=== PATIENT | female | born 1975 | race Caucasian/White ===

== ENCOUNTER → 2018-02-07 10:26 | Outpatient (CLI) | payer BC, SELFPAY ==
--- NOTE | 2018-02-07 10:34 | CT_ITS ---
CT abdomen pelvis w con CLINICAL INDICATION: Epigastric pain, lower abdominal pain ITS.REASON: RUQ MASS ORDERING PHYSICIAN: Anish Cabrera MD PATIENT AGE: 42 years COMPARISON: None TECHNIQUE: Axial images obtained with sagittal and coronal reformats. All CT scans at the facility use one or more dose reduction, viz: automated exposure control, ma/kV adjustment per patient size (including targeted exams where dose is matched to indication, i.e. head), or iterative reconstruction technique. PROCEDURE: Oral Contrast: Redicat IV Contrast: 75 mL's of Isovue-370. FINDINGS: Lower thorax: No acute finding . Breast prosthesis are noted Abdomen pelvis: There is a 5 mm isodensity in the left hepatic lobe and a 7 mm isodensity in the right hepatic lobe. Possibly due to small cysts. Spleen, adrenal glands, gallbladder, and pancreas has an unremarkable appearance. No renal or ureteral calculi. No hydronephrosis. There are few small mesenteric lymph nodes. Unremarkable appendix. No intestinal obstruction, free air, or diverticulitis. Prior hysterectomy. No pelvic mass or abnormal fluid collection or focal inflammatory change of the pelvis. No acute bony anomalies. Tiny umbilical hernia containing fat IMPRESSION: 1. No acute abdominal pelvic findings. 2. Nonspecific isodensity's of the liver which may be due to small cyst and may be confirmed with ultrasound if clinically warranted.
== END ==
PROVIDERS: Family Provider Family Medicine; PCP Family Medicine; Visit Provider Family Medicine
DX: R19.01 Right upper quadrant abdominal swelling, mass and lump (principal)
CPT/HCPCS: 74177; Q9967

== ENCOUNTER → 2018-03-17 09:32 | Outpatient (POV) | payer BC, SELFPAY | PROVIDERS: Visit Provider Nurse Practitioner Acute Care | DX: Z00.00 Encounter for general adult medical examination without abnormal findings (principal) ==

== ENCOUNTER 2018-09-04 13:00 | Outpatient (RCR) | payer BC, SELFPAY | END 2018-09-04 13:05 | disposition home or self-care (01) | LOC: PT 13:00 | PROVIDERS: Visit Provider Nurse Practitioner Family | DX: M50.30 Other cervical disc degeneration, unspecified cervical region (principal) | CPT/HCPCS: 97010; 97012; 97014; 97035; 97110; 97140; 97163; G0283 ==

== ENCOUNTER 2019-01-21 11:08 | Inpatient (IN) ==
--- NOTE | 2019-01-21 12:51 | History & Physical Report ---
*Admission Date: 01/21/19 <Roseanne Figueroa 01/21/19 12:58> *Chief complaint: flank pain, fever, dysuria <Roseanne Figueroa 01/21/19 12:58> *History of present illness: Ms. Day is a 43-year-old female who presented to the office of [facility] today with fever, chills, right flank and abdominal pain, and dysuria. She states last week she had some right flank pain for approximately 3 days and felt she may have had a kidney stone. The pain resolved but then returned again this week. The pain has progressively worsened and she developed a fever of over 101 along with body aches and chills. A CBC in the office showed a white count of 15,000. Urinalysis showed trace blood but was otherwise negative. A urine culture was sent for evaluation. She had a CT scan showing perinephric stranding on the right and radiology felt she may have possibly passed a stone recently. She was felt to have a pyelonephritis and was admitted for IV fluids, pain management, and IV antibiotics. <Roseanne Figueroa 01/21/19 12:58> [facility] History I have reviewed the patient's past medical history: Yes <Roseanne Figueroa 01/21/19 12:58> Medical History: Reports:: Gastroesophageal Reflux Disease(GERD), Migraine Denies:: Cancer, Diabetes Mellitus Type 1, Diabetes Mellitus Type 2, MRSA <Roseanne Figueroa 01/21/19 12:58> *Have you ever received a pneumonia vaccine?: No <Roseanne Figueroa 01/21/19 12:58> *Have you received a flu vaccine this season?: No <Roseanne Figueroa 01/21/19 12:58> Other Medical History: Reports: Hypothyroidism, Other (Carpal tunnel) <Roseanne Figueroa 01/21/19 12:58> Other Surgeries: Yes: , Hysterectomy-Total, Tubal Ligation, Other (Right shoulder, breast augmentation) <Roseanne Figueroa 01/21/19 12:58> Amputation: No <Roseanne Figueroa 01/21/19 12:58> - *Social History Smoking Status: Current every day smoker <Roseanne Figueroa 01/21/19 12:58> Tobacco Type: cigarettes <Roseanne Figueroa 01/21/19 12:58> Alcohol Intake: never <Roseanne Figueroa 01/21/19 12:58> *Occupational Status:: employed <Roseanne Figueroa 01/21/19 12:58> *Travel in the last 8 weeks: None <Roesanne Figueroa 01/21/19 12:58> Family Hx:: Cancer, Coronary Artery Disease <Roseanne Figueroa 01/21/19 12:58> Review of Systems - Constitutional Reports body ache(s), Reports chills, Reports fever(s), Reports malaise, Reports weakness <Roseanne Figueroa 01/21/19 12:58> - Eyes Denies blurry vision, Denies double vision <Roseanne Figueroa 01/21/19 12:58> - ENT Denies nasal congestion, Denies sore throat <Roseanne Figueroa 01/21/19 12:58> - *Cardiovascular Denies chest pain, Denies shortness of breath <Roseanne Figueroa 01/21/19 12:58> - *Respiratory Denies cough, Denies shortness of breath <Roseanne Figueroa 01/21/19 12:58> - *Gastrointestinal Reports abdominal pain (diffuse but worse on the right), Reports loose stools, Reports nausea, Denies vomiting <Roseanne Figueroa 01/21/19 12:58> - *Genitourinary Reports difficulty urinating, Reports painful urination <Roseanne Figueroa 01/21/19 12:58> - *Musculoskeletal Reports body aches, Denies joint pain <Roseanne Figueroa 01/21/19 12:58> - *Neurologic Reports headache(s), Reports weakness, Denies dizziness <Roseanne Figueroa 01/21/19 12:58> Meds Home Medications Medication Instructions Recorded Confirmed Type Levothyroxine Sodium 100 mg PO DAILY 12/29/17 01/21/19 History [Levothyroxine 100mcg (0.1MG) Tab] Pantoprazole Sodium [Protonix 40mg 40 mg PO DAILY 01/21/19 01/21/19 History tablet] <Olivier Lee - 01/21/19 17:23> Allergies Allergy/AdvReac Type Severity Reaction Status Date / Time No Known Allergies Allergy Verified 12/29/17 15:59 <Olivier Lee - 01/21/19 17:23> Exam Vital signs and Labs for Last 24 Hours: Temp Pulse Resp BP Pulse Ox 99.7 F H 105 H 18 131/75 96 01/21/19 16:00 01/21/19 16:00 01/21/19 16:00 01/21/19 16:00 01/21/19 16:00 Laboratory Results - last 24 hr 01/21/19 14:10: WBC 14.9 H, RBC 4.37, Hgb 13.3, Hct 41.6, MCV 95.2, MCH 30.5, MCHC 32.1, RDW 14.3, Plt Count 387, MPV 7.7, Neut % (Auto) 86.8 H, Lymph % (Auto) 5.9 L, [place] % (Auto) 6.9, Eos % (Auto) 0.3, Baso % (Auto) 0.3, Neut # (Auto) 12.9 H, Lymph # (Auto) 0.9, [place] # (Auto) 1.0, Eos # (Auto) 0.0, Baso # (Auto) 0.0, Total Counted 100, Neutrophils % (Manual) 90 H, Lymphocytes % (Manual) 7 L, Monocytes % (Manual) 3, Platelet Estimate Normal, RBC Morphology Normal 01/21/19 14:10: Sodium 137, Potassium 3.4 L, Chloride 101, Carbon Dioxide 22, Anion Gap 17.4 H, BUN 5 L, Creatinine 0.70, Estimated Creat Clear 85, Estimated GFR 91, Est GFR ( Amer) 110, Glucose 92, Calcium 8.4 L, Total Bilirubin 0.4, AST 11 L, ALT 9 L, Alkaline Phosphatase 86, Total Protein 7.5, Albumin 3.7, Globulin 3.8 H, Albumin/Globulin Ratio 1.0 L <Olivier Lee - 01/21/19 17:23> I & O for Last 24 hours: Intake & Output 01/18/19 01/19/19 01/20/19 01/21/19 23:59 23:59 23:59 23:59 Weight 116 lb 4 oz <Olivier Lee - 01/21/19 17:23> - Constitutional Comments: Does not appear to feel well <Roseanne Figueroa 01/21/19 12:58> - *Routine HEENT Exam Head: Present: normocephalic <Roseanne Figueroa 01/21/19 12:58> Eye: Present: EOMI, PERRL <Roseanne Figueroa 01/21/19 12:58> ENT: Present: mucous membranes moist <Roseanne Figueroa 01/21/19 12:58> - *Routine Neck Exam Present: supple. Absent: lymphadenopathy <Roseanne Figueroa 01/21/19 12:58> - *Routine Respiratory Exam Present: CTA bilaterally <Roseanne Figueroa 01/21/19 12:58> - *Routine Cardiovascular Exam Present: tachycardia <Roseanne Figueroa 01/21/19 12:58> - *Routine Abdominal Exam Present: soft, normoactive bowel sounds, tenderness (diffuse but worse in the RLQ and RMQ) <Roseanne Figueroa 01/21/19 12:58> - *Routine Extremities Exam Absent: cyanosis, clubbing, edema <Roseanne Figueroa 01/21/19 12:58> - Routine Back/Spine/Pelvis Exam Back/Spine: Present: CVA tenderness (bilaterally but worse on the right) <Roseanne Figueroa 01/21/19 12:58> - *Routine Skin Exam Present: warm. Absent: rash <Roseanne Figueroa 01/21/19 12:58> - *Routine Neurological Exam Present: alert, oriented X3 <Roseanne Figueroa 01/21/19 12:58> H&P: Result - Impressions Abd/pelvic CT Right perinephric stranding without renal stones or hydronephrosis or hydroureter. Differential would include acute right-sided nephritis or patient may have recently passed a stone. Stable liver lesions suggesting benign etiology. Nonspecific small mesenteric lymph nodes perhaps from mesenteric adenitis. <Roseanne Figueroa 01/21/19 12:58> Assessment and Plan (1) Pyelonephritis Current visit: Yes Status: Acute Category: Medical Code(s): N12 - Tubulo- interstitial nephritis, not specified as acute or chronic (2) Hypothyroid Current visit: Yes Status: Chronic Category: Medical Code(s): E03.9 - Hypothyroidism, unspecified (3) GERD (gastroesophageal reflux disease) Current visit: Yes Status: Chronic Category: Medical Code(s): K21.9 - Gastro-esophageal reflux disease without esophagitis <Olivier Lee - 01/21/19 17:23> (1) Pyelonephritis Current visit: Yes Status: Acute Category: Medical Code(s): N12 - Tubulo- interstitial nephritis, not specified as acute or chronic (2) Hypothyroid Current visit: Yes Status: Chronic Category: Medical Code(s): E03.9 - Hypothyroidism, unspecified (3) GERD (gastroesophageal reflux disease) Current visit: Yes Status: Chronic Category: Medical Code(s): K21.9 - Gastro-esophageal reflux disease without esophagitis <Roseanne Figueroa - 01/21/19 12:47> - Assessment and plan all Dx Assessment and Plan for all problems:: Saw patient, agree with above note. <Olivier Lee - 01/21/19 17:23> We will give a bolus of fluids and then start on normal saline at 125 mL an hour. Will start on Levaquin as well as Rocephin and morphine for pain. We will add Tylenol for fever and start on Zofran for nausea. Will await urine and blood culture results. <Roseanne Figueroa - 01/21/19 12:58>
[2019-01-21 15:10] LABS: Basophils % 0.3 % (0.1-2.0); Eosinophils % 0.3 % (0.1-12.0); Hematocrit 41.6 % (37.0-47.0); Hemoglobin 13.3 g/dL (12.2-16.2); Lymphocytes # 0.9 K/mm3 (0.7-4.5); Lymphocytes % 5.9 % (10-50); Mean Corpuscular HGB Conc 32.1 g/dL (31.8-35.4); Mean Corpuscular Volume 95.2 fl (81-99); Mean Platelet Volume 7.7 fl (7.4-10.4); Monocytes % 6.9 % (1.7-9.3); Neutrophils # 12.9 K/mm3 (1.8-7.8); Neutrophils % 86.8 % (37.0-80.0); Platelet Count 387 K/mm3 (142-424); Red Blood Count 4.37 M/mm3 (4.20-5.40); Red Cell Distribution Width 14.3 % (11.5-17.5); White Blood Count 14.9 K/mm3 (4.8-10.8)
[2019-01-21 16:13] LABS: Albumin Level 3.7 gm/dL (3.4-5.0); Anion Gap 17.4 mEq/L (5-15); Bilirubin,Total 0.4 mg/dL (0.2-1.0); Calcium 8.4 mg/dL (8.5-10.1); Globulin 3.8 gm/dl (1.3-3.2); Total Protein,Serum 7.5 gm/dL (6.4-8.2)
--- NOTE | 2019-01-21 16:17 | Pharmacy Consult Notes ---
[facility] Pharmacy VTE Monitoring - Patient Demographics Admission date: 01/21/19 Report Date: 01/21/19 Time: 16:16 Allergies/Adverse Reactions: Patient Allergies No Known Allergies Allergy (Verified 12/29/17 15:59) Height: 1.57 m Weight: 52.73 kg Patient Problems: Current Active Problems Pyelonephritis (Acute) Hypothyroid (Chronic) GERD (gastroesophageal reflux disease) (Chronic) - VTE Risk Labs: VTE Related Lab Results Hgb 13.3 g/dL (12.2-16.2) 01/21/19 14:10 Hct 41.6 % (37.0-47.0) 01/21/19 14:10 Plt Count 387 K/mm3 (142-424) 01/21/19 14:10 BUN 5 mg/dL (7-18) L 01/21/19 14:10 Creatinine 0.70 mg/dL (0.55-1.02) 01/21/19 14:10 Estimated Creat Clear 85 mL/min (50-200) 01/21/19 14:10 Was VTE Risk Assessment Performed: Yes VTE Score: 1 VTE Risk Level: Very Low Risk - Prophylaxis VTE Prophylaxis Ordered?: Yes Types of VTE Prophylaxis: TEDS Knee High Location of Applied Device: Bilateral Lower Extremeties - VTE Diagnosis Confirmed Treatment or plan recommended: Continue Current Treatment
[2019-01-21 16:18] LABS: Lymphocytes % 7 % (10-50); Monocytes % 3 % (2-9); Neutrophils % 90 % (42-76); RBC Morphology Normal; Total Cells Counted 100
[2019-01-21 23:15] LABS: Microscopic, Urine URINE MICROSCOPIC (MICROSCOPIC)
[2019-01-21 23:21] LABS: Appearance,Urine CLEAR (Clear); Bilirubin,Urine Negative (Negative); Blood, Urine 1+ (Negative); Color,Urine YELLOW (Yellow); Glucose,Urine (UA) Negative (Negative); Ketones,Urine Negative (Negative); Leukocyte Esterase,Urine 1+ (Negative); Protein,Urine Negative (Negative); Specific Gravity, Urine <= 1.005 (1.005-1.030); Urobilinogen,Urine 0.2 EU/dl (0.2)
[2019-01-21 23:38] LABS: Bacteria,Urine Trace /lpf
[2019-01-22 07:09] LABS: Eosinophils % 0.2 % (0.1-12.0); Lymphocytes # 1.9 K/mm3 (0.7-4.5)
[2019-01-22 07:23] LABS: Albumin Level 2.9 gm/dL (3.4-5.0); Albumin/Globulin Ratio 0.8 (1.1-1.8); Anion Gap 15.4 mEq/L (5-15); Bilirubin,Total 0.3 mg/dL (0.2-1.0); Calcium 8.4 mg/dL (8.5-10.1); Globulin 3.5 gm/dl (1.3-3.2); Total Protein,Serum 6.4 gm/dL (6.4-8.2)
[2019-01-22 07:24] LABS: Basophils # 0.1 K/mm3 (0-0.2); Basophils % 0.4 % (0.1-2.0); Lymphocytes % 13.1 % (10-50); Mean Corpuscular HGB Conc 30.4 g/dL (31.8-35.4); Mean Corpuscular Volume 96.1 fl (81-99); Monocytes # 0.9 K/mm3 (0.1-1.0); Monocytes % 6.2 % (1.7-9.3); Neutrophils # 11.8 K/mm3 (1.8-7.8); Neutrophils % 80.1 % (37.0-80.0); Platelet Count 314 K/mm3 (142-424); Red Blood Count 3.74 M/mm3 (4.20-5.40); Red Cell Distribution Width 14.2 % (11.5-17.5); White Blood Count 14.8 K/mm3 (4.8-10.8)
[2019-01-22 07:44] LABS: Hemoglobin 10.9 g/dL (12.2-16.2)
--- NOTE | 2019-01-22 08:20 | Progress Note ---
<Roseanne Figueroa - Last Filed: 01/22/19 08:18> Internal Medicine - PN: Subj *Date: 01/22/19 *Time: 08:19 Interval history: Patient is feeling much better this morning. She still has some right flank and right lower quadrant pain. She slept off and on throughout the night and was able to tolerate a diet. Exam Vital signs and Labs for Last 24 Hours: Temp Pulse Resp BP Pulse Ox 98.7 F 83 18 115/64 97 01/22/19 04:00 01/22/19 04:00 01/22/19 04:00 01/22/19 04:00 01/22/19 04:00 Laboratory Results - last 24 hr 01/21/19 14:10: WBC 14.9 H, RBC 4.37, Hgb 13.3, Hct 41.6, MCV 95.2, MCH 30.5, MCHC 32.1, RDW 14.3, Plt Count 387, MPV 7.7, Neut % (Auto) 86.8 H, Lymph % (Auto) 5.9 L, [place] % (Auto) 6.9, Eos % (Auto) 0.3, Baso % (Auto) 0.3, Neut # (Auto) 12.9 H, Lymph # (Auto) 0.9, [place] # (Auto) 1.0, Eos # (Auto) 0.0, Baso # (Auto) 0.0, Total Counted 100, Neutrophils % (Manual) 90 H, Lymphocytes % (Manual) 7 L, Monocytes % (Manual) 3, Platelet Estimate Normal, RBC Morphology Normal 01/21/19 14:10: Sodium 137, Potassium 3.4 L, Chloride 101, Carbon Dioxide 22, Anion Gap 17.4 H, BUN 5 L, Creatinine 0.70, Estimated Creat Clear 85, Estimated GFR 91, Est GFR ( Amer) 110, Glucose 92, Calcium 8.4 L, Total Bilirubin 0.4, AST 11 L, ALT 9 L, Alkaline Phosphatase 86, Total Protein 7.5, Albumin 3.7, Globulin 3.8 H, Albumin/Globulin Ratio 1.0 L 01/21/19 23:10: Urine Color Yellow, Urine Appearance Clear, Urine pH 7.0, Ur Specific [place] <= 1.005, Urine Protein Negative, Urine Glucose (UA) Negative, Urine Ketones Negative, Urine Blood 1+, Urine Nitrate Negative, Urine Bilirubin Negative, Urine Urobilinogen 0.2, Ur Leukocyte Esterase 1+ A, Urine WBC 5-10, Ur Squamous Epith Cells 3-5, Urine Bacteria Trace 01/22/19 06:50: WBC 14.8 H, RBC 3.74 L, Hgb 10.9 L D, Hct 36.0 L, MCV 96.1, MCH 29.2, MCHC 30.4 L, RDW 14.2, Plt Count 314, MPV 7.0 L, Neut % (Auto) 80.1 H, Lymph % (Auto) 13.1, [place] % (Auto) 6.2, Eos % (Auto) 0.2, Baso % (Auto) 0.4, Neut # (Auto) 11.8 H, Lymph # (Auto) 1.9, [place] # (Auto) 0.9, Eos # (Auto) 0.0, Baso # (Auto) 0.1 01/22/19 06:50: Sodium 140, Potassium 3.4 L, Chloride 106, Carbon Dioxide 22, Anion Gap 15.4 H, BUN 5 L, Creatinine 0.71, Estimated Creat Clear 84, Estimated GFR 89, Est GFR ( Amer) 108, Glucose 122 H D, Calcium 8.4 L, Total Bilirubin 0.3, AST 8 L D, ALT 8 L, Alkaline Phosphatase 71, Total Protein 6.4, Albumin 2.9 L D, Globulin 3.5 H, Albumin/Globulin Ratio 0.8 L I & O for Last 24 hours: Intake & Output 01/19/19 01/20/19 01/21/19 01/22/19 11:59 11:59 11:59 11:59 Intake Total 2004 Output Total 250 / 250 Balance 1755 / 1755 Weight 116 lb 4 oz - Constitutional no acute distress - *Routine Respiratory Exam Present: CTA bilaterally - *Routine Cardiovascular Exam Present: RRR - *Routine Abdominal Exam Present: soft, normoactive bowel sounds, tenderness (RMQ and RLQ) - *Routine Extremities Exam Absent: cyanosis, clubbing, edema - *Routine Skin Exam Present: warm. Absent: rash Assessment and Plan (1) Pyelonephritis Current visit: Yes Status: Acute Category: Medical Code(s): N12 - Tubulo- interstitial nephritis, not specified as acute or chronic (2) Hypothyroid Current visit: Yes Status: Chronic Category: Medical Code(s): E03.9 - Hypothyroidism, unspecified (3) GERD (gastroesophageal reflux disease) Current visit: Yes Status: Chronic Category: Medical Code(s): K21.9 - Gastro-esophageal reflux disease without esophagitis (4) Hypokalemia Current visit: Yes Status: Acute Category: Medical Code(s): E87.6 - Hypokalemia - Assessment and plan all Dx Assessment and Plan for all problems:: We will continue IV antibiotics and await urine culture results. Will start on potassium for hypokalemia. <Olivier Lee - Last Filed: 01/22/19 08:22> Internal Medicine - PN: Subj *Date: 01/22/19 *Time: 08:22 Exam Vital signs and Labs for Last 24 Hours: Temp Pulse Resp BP Pulse Ox 98.7 F 83 18 115/64 97 01/22/19 04:00 01/22/19 04:00 01/22/19 04:00 01/22/19 04:00 01/22/19 04:00 Laboratory Results - last 24 hr 01/21/19 14:10: WBC 14.9 H, RBC 4.37, Hgb 13.3, Hct 41.6, MCV 95.2, MCH 30.5, MCHC 32.1, RDW 14.3, Plt Count 387, MPV 7.7, Neut % (Auto) 86.8 H, Lymph % (Auto) 5.9 L, [place] % (Auto) 6.9, Eos % (Auto) 0.3, Baso % (Auto) 0.3, Neut # (Auto) 12.9 H, Lymph # (Auto) 0.9, [place] # (Auto) 1.0, Eos # (Auto) 0.0, Baso # (Auto) 0.0, Total Counted 100, Neutrophils % (Manual) 90 H, Lymphocytes % (Manual) 7 L, Monocytes % (Manual) 3, Platelet Estimate Normal, RBC Morphology Normal 01/21/19 14:10: Sodium 137, Potassium 3.4 L, Chloride 101, Carbon Dioxide 22, Anion Gap 17.4 H, BUN 5 L, Creatinine 0.70, Estimated Creat Clear 85, Estimated GFR 91, Est GFR ( Amer) 110, Glucose 92, Calcium 8.4 L, Total Bilirubin 0.4, AST 11 L, ALT 9 L, Alkaline Phosphatase 86, Total Protein 7.5, Albumin 3.7, Globulin 3.8 H, Albumin/Globulin Ratio 1.0 L 01/21/19 23:10: Urine Color Yellow, Urine Appearance Clear, Urine pH 7.0, Ur Specific [place] <= 1.005, Urine Protein Negative, Urine Glucose (UA) Negative, Urine Ketones Negative, Urine Blood 1+, Urine Nitrate Negative, Urine Bilirubin Negative, Urine Urobilinogen 0.2, Ur Leukocyte Esterase 1+ A, Urine WBC 5-10, Ur Squamous Epith Cells 3-5, Urine Bacteria Trace 01/22/19 06:50: WBC 14.8 H, RBC 3.74 L, Hgb 10.9 L D, Hct 36.0 L, MCV 96.1, MCH 29.2, MCHC 30.4 L, RDW 14.2, Plt Count 314, MPV 7.0 L, Neut % (Auto) 80.1 H, Lymph % (Auto) 13.1, [place] % (Auto) 6.2, Eos % (Auto) 0.2, Baso % (Auto) 0.4, Neut # (Auto) 11.8 H, Lymph # (Auto) 1.9, [place] # (Auto) 0.9, Eos # (Auto) 0.0, Baso # (Auto) 0.1 01/22/19 06:50: Sodium 140, Potassium 3.4 L, Chloride 106, Carbon Dioxide 22, Anion Gap 15.4 H, BUN 5 L, Creatinine 0.71, Estimated Creat Clear 84, Estimated GFR 89, Est GFR ( Amer) 108, Glucose 122 H D, Calcium 8.4 L, Total Bilirubin 0.3, AST 8 L D, ALT 8 L, Alkaline Phosphatase 71, Total Protein 6.4, Albumin 2.9 L D, Globulin 3.5 H, Albumin/Globulin Ratio 0.8 L I & O for Last 24 hours: Intake & Output 01/19/19 01/20/19 01/21/19 01/22/19 23:59 23:59 23:59 23:59 Intake Total 480 / 480 1525 / 1525 Output Total 250 / 250 Balance 230 / 230 1525 / 1525 Weight 116 lb 4 oz Assessment and Plan (1) Pyelonephritis Current visit: Yes Status: Acute Category: Medical Code(s): N12 - Tubulo- interstitial nephritis, not specified as acute or chronic (2) Hypothyroid Current visit: Yes Status: Chronic Category: Medical Code(s): E03.9 - Hypothyroidism, unspecified (3) GERD (gastroesophageal reflux disease) Current visit: Yes Status: Chronic Category: Medical Code(s): K21.9 - Gastro-esophageal reflux disease without esophagitis (4) Hypokalemia Current visit: Yes Status: Acute Category: Medical Code(s): E87.6 - Hypokalemia - Assessment and plan all Dx Assessment and Plan for all problems:: Saw patient, agree with above note.
[2019-01-23 06:56] LABS: Basophils % 0.4 % (0.1-2.0); Eosinophils # 0.2 K/mm3 (0.0-0.4); Eosinophils % 1.4 % (0.1-12.0); Hematocrit 35.8 % (37.0-47.0); Hemoglobin 11.5 g/dL (12.2-16.2); Lymphocytes # 2.2 K/mm3 (0.7-4.5); Lymphocytes % 20.4 % (10-50); Mean Corpuscular HGB Conc 32.1 g/dL (31.8-35.4); Mean Corpuscular Volume 95.1 fl (81-99); Mean Platelet Volume 7.7 fl (7.4-10.4); Monocytes # 0.7 K/mm3 (0.1-1.0); Monocytes % 6.6 % (1.7-9.3); Neutrophils # 7.7 K/mm3 (1.8-7.8); Neutrophils % 71.1 % (37.0-80.0); Platelet Count 300 K/mm3 (142-424); Red Blood Count 3.77 M/mm3 (4.20-5.40); Red Cell Distribution Width 13.6 % (11.5-17.5); White Blood Count 10.9 K/mm3 (4.8-10.8)
[2019-01-23 07:05] LABS: Anion Gap 13.7 mEq/L (5-15); Calcium 8.6 mg/dL (8.5-10.1)
--- NOTE | 2019-01-23 08:34 | Progress Note ---
<Roseanne Figueroa - Last Filed: 01/23/19 08:33> Internal Medicine - PN: Subj *Date: 01/23/19 *Time: 08:33 Interval history: Patient states she is feeling better today. She still has some right flank pain. She is tolerating a diet and slept a little bit better last night. Exam Vital signs and Labs for Last 24 Hours: Temp Pulse Resp BP Pulse Ox 98.6 F 84 16 111/69 98 01/23/19 04:00 01/23/19 04:00 01/23/19 04:00 01/23/19 04:00 01/23/19 04:00 Laboratory Results - last 24 hr 01/23/19 06:16: WBC 10.9 H D, RBC 3.77 L, Hgb 11.5 L, Hct 35.8 L, MCV 95.1, MCH 30.6, MCHC 32.1, RDW 13.6, Plt Count 300, MPV 7.7, Neut % (Auto) 71.1, Lymph % (Auto) 20.4, [place] % (Auto) 6.6, Eos % (Auto) 1.4, Baso % (Auto) 0.4, Neut # (Auto) 7.7, Lymph # (Auto) 2.2, [place] # (Auto) 0.7, Eos # (Auto) 0.2, Baso # (Auto) 0.0 01/23/19 06:16: Sodium 138, Potassium 3.7, Chloride 105, Carbon Dioxide 23, An ion Gap 13.7, BUN 4 L, Creatinine 0.64, Estimated Creat Clear 93, Estimated GFR 101, Est GFR ( Amer) 122, Glucose 109 H, Calcium 8.6 I & O for Last 24 hours: Intake & Output 01/20/19 01/21/19 01/22/19 01/23/19 11:59 11:59 11:59 11:59 Intake Total 2515 / 2515 3155 / 3155 Output Total 250 / 250 Balance 2265 / 2265 3155 / 3155 Weight 116 lb 4 oz 116 lb 3.996 oz Microbiology Reports for the Last 24 Hours: Microbiology 01/21/19 23:10 Urine,Clean Catch Urine Culture - Preliminary NO GROWTH AFTER 24 HOURS - Constitutional no acute distress - *Routine Respiratory Exam Present: CTA bilaterally - *Routine Cardiovascular Exam Present: RRR - *Routine Abdominal Exam Present: soft, normoactive bowel sounds, tenderness (RMQ and RLQ) - *Routine Extremities Exam Absent: cyanosis, clubbing, edema - *Routine Skin Exam Present: warm. Absent: rash - *Routine Neurological Exam Present: alert, oriented X3 Assessment and Plan (1) Pyelonephritis Current visit: Yes Status: Acute Category: Medical Code(s): N12 - Tubulo- interstitial nephritis, not specified as acute or chronic (2) Hypothyroid Current visit: Yes Status: Chronic Category: Medical Code(s): E03.9 - Hypothyroidism, unspecified (3) GERD (gastroesophageal reflux disease) Current visit: Yes Status: Chronic Category: Medical Code(s): K21.9 - Gastro-esophageal reflux disease without esophagitis (4) Hypokalemia Current visit: Yes Status: Acute Category: Medical Code(s): E87.6 - Hypokalemia - Assessment and plan all Dx Assessment and Plan for all problems:: Urine culture so far show no growth. Patient can possibly be discharged today on oral antibiotics. <Olivier Lee - Last Filed: 01/23/19 08:53> Internal Medicine - PN: Subj *Date: 01/23/19 *Time: 08:53 Exam Vital signs and Labs for Last 24 Hours: Temp Pulse Resp BP Pulse Ox 98.6 F 84 16 111/69 98 01/23/19 04:00 01/23/19 04:00 01/23/19 04:00 01/23/19 04:00 01/23/19 04:00 Laboratory Results - last 24 hr 01/23/19 06:16: WBC 10.9 H D, RBC 3.77 L, Hgb 11.5 L, Hct 35.8 L, MCV 95.1, MCH 30.6, MCHC 32.1, RDW 13.6, Plt Count 300, MPV 7.7, Neut % (Auto) 71.1, Lymph % (Auto) 20.4, [place] % (Auto) 6.6, Eos % (Auto) 1.4, Baso % (Auto) 0.4, Neut # (Auto) 7.7, Lymph # (Auto) 2.2, [place] # (Auto) 0.7, Eos # (Auto) 0.2, Baso # (Auto) 0.0 01/23/19 06:16: Sodium 138, Potassium 3.7, Chloride 105, Carbon Dioxide 23, Anion Gap 13.7, BUN 4 L, Creatinine 0.64, Estimated Creat Clear 93, Estimated GFR 101, Est GFR ( Amer) 122, Glucose 109 H, Calcium 8.6 I & O for Last 24 hours: Intake & Output 01/20/19 01/21/19 01/22/19 01/23/19 23:59 23:59 23:59 23:59 Intake Total 630 / 630 2245 / 2245 2795 / 2795 Output Total 250 / 250 Balance 380 / 380 2245 / 2245 2795 / 2795 Weight 116 lb 4 oz 116 lb 3.996 oz Microbiology Reports for the Last 24 Hours: Microbiology 01/21/19 23:10 Urine,Clean Catch Urine Culture - Preliminary NO GROWTH AFTER 24 HOURS Assessment and Plan (1) Pyelonephritis Current visit: Yes Status: Acute Category: Medical Code(s): N12 - Tubulo- interstitial nephritis, not specified as acute or chronic (2) Hypothyroid Current visit: Yes Status: Chronic Category: Medical Code(s): E03.9 - Hypothyroidism, unspecified (3) GERD (gastroesophageal reflux disease) Current visit: Yes Status: Chronic Category: Medical Code(s): K21.9 - Gastro-esophageal reflux disease without esophagitis (4) Hypokalemia Current visit: Yes Status: Acute Category: Medical Code(s): E87.6 - Hypokalemia - Assessment and plan all Dx Assessment and Plan for all problems:: Saw patient, agree with above note. OK to discharge today on Levaquin with office f/u in 3 days.
--- NOTE | 2019-01-23 12:39 | Discharge Summary ---
General - General Admission date:: 01/21/19 Discharge date: 01/23/19 HPI HPI: Ms. Day is a 43-year-old female who presented to the office of [facility] today with fever, chills, right flank and abdominal pain, and dysuria. She states last week she had some right flank pain for approximately 3 days and felt she may have had a kidney stone. The pain resolved but then returned again this week. The pain has progressively worsened and she developed a fever of over 101 along with body aches and chills. A CBC in the office showed a white count of 15,000. Urinalysis showed trace blood but was otherwise negative. A urine culture was sent for evaluation. She had a CT scan showing perinephric stranding on the right and radiology felt she may have possibly passed a stone recently. She was felt to have a pyelonephritis and was admitted for IV fluids, pain management, and IV antibiotics. Hospital Course Hospital Course: The patient was started on IV fluids, pain management, and Levaquin as well as Rocephin. Her pain did improve and she was able to tolerate a diet. Her potassium was low and was replaced. Her urine culture showed no growth after 24 hours and her blood cultures are still pending. She was stable to be discharged home on oral antibiotics and will follow-up in the office of [facility]. Objective Vital signs: Temp Pulse Resp BP Pulse Ox 98.8 F 95 H 16 128/75 100 01/23/19 08:00 01/23/19 08:00 01/23/19 08:00 01/23/19 08:00 01/23/19 08:00 Narrative: - Constitutional Comments: Does not appear to feel well - *Routine HEENT Exam Head: Present: normocephalic Eye: Present: EOMI, PERRL ENT: Present: mucous membranes moist - *Routine Neck Exam Present: supple. Absent: lymphadenopathy - *Routine Respiratory Exam Present: CTA bilaterally - *Routine Cardiovascular Exam Present: tachycardia - *Routine Abdominal Exam Present: soft, normoactive bowel sounds, tenderness (diffuse but worse in the RLQ and RMQ) - *Routine Extremities Exam Absent: cyanosis, clubbing, edema - Routine Back/Spine/Pelvis Exam Back/Spine: Present: CVA tenderness (bilaterally but worse on the right) - *Routine Skin Exam Present: warm. Absent: rash - *Routine Neurological Exam Present: alert, oriented X3 Results Labs on day of discharge: Labs from last 24 hours 01/23/19 01/23/19 06:16 06:16 WBC 10.9 H D RBC 3.77 L Hgb 11.5 L Hct 35.8 L MCV 95.1 MCH 30.6 MCHC 32.1 RDW 13.6 Plt Count 300 MPV 7.7 Neut % (Auto) 71.1 Lymph % (Auto) 20.4 [place] % (Auto) 6.6 Eos % (Auto) 1.4 Baso % (Auto) 0.4 Neut # (Auto) 7.7 Lymph # (Auto) 2.2 [place] # (Auto) 0.7 Eos # (Auto) 0.2 Baso # (Auto) 0.0 Sodium 138 Potassium 3.7 Chloride 105 Carbon Dioxide 23 Anion Gap 13.7 BUN 4 L Creatinine 0.64 Estimated Creat Clear 93 Estimated GFR 101 Est GFR ( Amer) 122 Glucose 109 H Calcium 8.6 Preliminary micro results at discharge 01/21/19 23:10 Urine Culture - Preliminary Urine,Clean Catch NO GROWTH AFTER 24 HOURS DS: Diagnosis - Discharge Diagnosis (1) Pyelonephritis Status: Acute (2) Hypothyroid Status: Chronic (3) GERD (gastroesophageal reflux disease) Status: Chronic (4) Hypokalemia Status: Acute Discharge Plan - Patient Discharge Instructions ACTIVITY: Continue current activity DIET: continue same diet Patient Instructions: DI for Kidney Infection, DI for Hypokalemia - Follow up Plan Follow up with: Olivier Lee MD [Primary Care Provider] - 01/26/19 Disposition: Home, Self-Jail Medications: Home Medications Medication Instructions Recorded Confirmed Type Levothyroxine Sodium 100 mg PO DAILY 12/29/17 01/21/19 History [Levothyroxine 100mcg (0.1MG) Tab] Pantoprazole Sodium [Protonix 40mg 40 mg PO DAILY 01/21/19 01/21/19 History tablet] Tramadol HCl [Tramadol 50mg 50 mg PO Q4HP PRN #18 tab 01/23/19 Rx Tab] levoFLOXacin [Levaquin 750mg 750 mg PO DAILY #5 tab 01/23/19 Rx tablet] Prescriptions/Medication Reconciliation: New levoFLOXacin [Levaquin 750mg tablet] 750 mg PO DAILY #5 tab Tramadol HCl [Tramadol 50mg Tab] 50 mg PO Q4HP PRN #18 tab PRN Reason: Moderate Pain Continued Levothyroxine Sodium [Levothyroxine 100mcg (0.1MG) Tab] 100 mg PO DAILY Pantoprazole Sodium [Protonix 40mg tablet] 40 mg PO DAILY - Problem Reconciliation Problems Reviewed?: Yes
== END 2019-01-23 11:14 | disposition home or self-care (01) | DRG 690 ==
LOC: RAD 11:08 → 2ND 11:08 → OBSVTOIN 12:30 → 2ND 12:35
PROVIDERS: ADMIT Family Medicine; ATTEND Family Medicine
CPT/HCPCS: 36415; 74176; 80048; 80053; 81001; 85007; 85025; 87040; 87086; J1956; J2405

== ENCOUNTER → 2019-06-26 08:22 | Outpatient (CLI) | payer BC, SELFPAY ==
--- NOTE | 2019-06-26 08:30 | US_ITS ---
PROCEDURE: US ABDOMEN LIMITED CLINICAL INDICATION: ABD PAIN symptoms of reflux COMPARISON: CT ABDOMEN PELVIS WO CON from 01/21/2019 FINDINGS: PANCREAS: Unremarkable. No obvious mass or abnormal fluid collection. No ductal dilatation LIVER: No focal liver lesions demonstrated. Homogeneous echogenicity. No intrahepatic biliary ductal dilatation evident. There is appropriate direction of blood flow within a non dilated portal vein RIGHT KIDNEY: The right kidney measures 9.8 x 4.1 by 6.3 cm and appears sonographically normal. GALLBLADDER: The gallbladder is normal in size showing a trace amount of biliary sludge. There are no gallstones. The common bile duct is normal in caliber. IMPRESSION: Trace biliary sludge otherwise unremarkable study Dictated by: Dr. Chucho Rowe MD 06/26/2019 11:[address] Chucho Rowe MD in [place] 06/26/2019 11:12
--- NOTE | 2019-06-26 08:53 | XR_ITS ---
PROCEDURE: XR WRIST LT MIN 3V CLINICAL INDICATION: left wrist pain history of previous distal radial fracture COMPARISON: WRL3 WRIST-3 VIEWS-LT from 07/14/2016 FINDINGS: Mild deformity of the distal radius is noted secondary to the old fracture. There is apparent incomplete closure of the previous fracture with a small gap along the distal radial border though the main portion of the fracture appears to be fused. There is moderate narrowing of the radiocarpal joint. The distal ulna is intact and the carpal bones appear intact. The pronator quadratus fat pad is well seen tending to exclude an effusion within the joint. IMPRESSION: Healed distal radial fracture with mild to moderate deformity of the distal radial border Dictated by: Dr. Chucho Rowe MD 06/26/2019 09:[address] Chucho Rowe MD in [place] 06/26/2019 09:37
--- NOTE | 2019-06-26 08:56 | XR_ITS ---
PROCEDURE: XR CHEST 2V CLINICAL HISTORY: RUQ PAIN,GERD COMPARISON: No exams were available for comparison FINDINGS: The cardiomediastinal silhouette and pulmonary vascularity are within normal limits. The lungs are clear without infiltrates, suspicious nodules, or pleural effusions. No acute bony abnormalities. IMPRESSION: No acute findings. Dictated by: Dr. Chucho Rowe MD 06/26/2019 09:[address] Chucho Rowe MD in [place] 06/26/2019 09:31
== END ==
PROVIDERS: PCP Family Medicine; Visit Provider Nurse Practitioner Family
DX: M25.532 Pain in left wrist (principal); R10.11 Right upper quadrant pain
CPT/HCPCS: 71046; 73110; 76705

== ENCOUNTER → 2019-07-17 08:58 | Outpatient (CLI) | payer BC, SELFPAY ==
--- NOTE | 2019-07-17 09:01 | NM_ITS ---
PROCEDURE: NM HEPATOBILIARY W PHARM CLINICAL INDICATION: ABD PAIN Right upper quadrant pain COMPARISON: US ABDOMEN LIMITED from 06/26/2019 TECHNIQUE: DOSE: 8.68 mCi technetium Choletec and 1.3 mcg of CCK FINDINGS: Homogeneous activity is present within the hepatic parenchyma. Activity is present in the gallbladder by 6 minutes. Activity is present in the small bowel by 14 minutes. The gallbladder ejection fraction is calculated to be 91 percent. CCK-The patient did not report pain or other symptoms during CCK infusion. IMPRESSION: No evidence of common or cystic duct obstruction with normal gallbladder ejection fraction. Dictated by: Gabriele Serrano MD 07/17/2019 13:49 Electronically signed by Gabriele Serrano MD in [place] 07/17/2019 13:49
--- NOTE | 2019-07-17 11:51 | HMH.ITSHM ---
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 [] protonix
== END ==
PROVIDERS: PCP Family Medicine; Visit Provider Nurse Practitioner Family
DX: R93.89 Abnormal findings on diagnostic imaging of other specified body structures (principal)
CPT/HCPCS: 78227; A9537; J2805

== ENCOUNTER → 2019-08-31 11:13 | Outpatient (CLI) | payer BC, SELFPAY ==
--- NOTE | 2019-08-31 11:19 | XR_ITS ---
PROCEDURE: XR SHOULDER RT MIN 2V CLINICAL INDICATION: RT SHOULDER PAIN COMPARISON: No exams were available for comparison FINDINGS: No fracture or dislocation. No lytic or blastic change. There is normal mineralization. The joint spaces are well-preserved. No significant degenerative/arthritic changes. No erosive changes evident. Other findings:None. IMPRESSION: No acute findings. Dictated by: Gabriele Serrano MD 08/31/2019 11:50 Electronically signed by Gabriele Serrano MD in [place] 08/31/2019 11:50
== END ==
PROVIDERS: PCP Nurse Practitioner Family; Visit Provider Nurse Practitioner Family
DX: M25.511 Pain in right shoulder (principal)
CPT/HCPCS: 73030

== ENCOUNTER 2019-09-03 11:00 | Outpatient (RCR) | payer BC, SELFPAY | END 2019-09-03 11:05 | disposition home or self-care (01) | LOC: PT 11:00 | PROVIDERS: PCP Family Medicine; Visit Provider Nurse Practitioner Family | DX: T14.8XXA Other injury of unspecified body region, initial encounter (principal); M54.2 Cervicalgia; M25.511 Pain in right shoulder | CPT/HCPCS: 20560; 97010; 97014; 97035; 97110; 97140; 97163; G0283 ==

== ENCOUNTER → 2019-11-25 11:39 | Outpatient (CLI) | payer BC, SELFPAY ==
--- NOTE | 2019-11-25 | XR_ITS ---
PROCEDURE: XR HIP RT 2-3V W/PELVIS CLINICAL INDICATION: COMPARISON: CT CT ABDOMEN PELVIS WO CON from 01/21/2019 FINDINGS: No fracture or dislocation. No lytic or blastic change. There are small os acetabuli on both sides as a normal variant. There is some nonspecific increased density within the right ilium inferiorly superior to the acetabulum. No significant degenerative change. IMPRESSION: No acute findings. Dictated b Gabriele Serrano MD 11/25/2019 13:30 Gabriele Serrano MD in [place] 11/25/2019 13:30
--- NOTE | 2019-11-25 | XR_ITS ---
PROCEDURE: XR KNEE RT 3V CLINICAL INDICATION: R KNEE AND HIP PAIN The COMPARISON: No exams were available for comparison FINDINGS: No fracture or dislocation. No lytic or blastic change. There is normal mineralization. The joint spaces are well-preserved. No significant degenerative/arthritic changes. No erosive changes evident. Other findings:There is some minimal sclerosis of the medial medial femoral condyle and medial tibial plateau. A faint subarticular lucency is present involving the medial femoral condyle IMPRESSION: Minimal sclerosis of the medial joint space with small subarticular lucency of the medial femoral condyle which could be due to a developing sub chondral cyst or an osteochondral defect. MRI may provide further evaluation if clinically desired. Dictated b Gabriele Serrano MD 11/25/2019 13:32 Gabriele Serrano MD in [place] 11/25/2019 13:32
== END ==
PROVIDERS: PCP Family Medicine; Visit Provider Nurse Practitioner Family
DX: M25.551 Pain in right hip (principal); M25.561 Pain in right knee
CPT/HCPCS: 73502; 73562

== ENCOUNTER → 2019-11-30 11:56 | Outpatient (CLI) | payer BC, SELFPAY ==
--- NOTE | 2019-11-30 12:00 | XR_ITS ---
PROCEDURE: XR LUMBAR SPINE MIN 4V CLINICAL INDICATION: LOW BACK PAIN COMPARISON: CT CT ABDOMEN PELVIS WO CON from 01/21/2019 FINDINGS: No fracture or dislocation. No lytic or blastic change. There is normal mineralization. Mild degenerative disc disease L4-5 with slight decrease in the disc space. Small bone island noted in the right super acetabular region. IMPRESSION: Minimal lumbar scoliosis with mild degenerative disc disease L4-5 Dictated b Gabriele Serrano MD 11/30/2019 12:53 Gabriele Serrano MD in [place] 11/30/2019 12:53
== END ==
PROVIDERS: PCP Family Medicine; Visit Provider Nurse Practitioner Family
DX: M54.5 Low back pain (principal)
CPT/HCPCS: 72110

== ENCOUNTER → 2019-12-02 14:58 | Outpatient (CLI) | payer BC, SELFPAY ==
--- NOTE | 2019-12-02 15:10 | MR_ITS ---
PROCEDURE: MR KNEE RT WO CON CLINICAL INDICATION: KNEE PAIN, knee pain and swelling with instability PAIN AND SWELLING AROUND ENTIRE KNEE. [id number]. NO INJURY. KNEE INSTABILITY. PRIOR X-RAY 11-25-19 COMPARISON: CR XR KNEE RT 3V from 11/25/2019 TECHNIQUE: Routine multiplanar multi echo sequences are performed without gadolinium enhancement. FINDINGS: The cruciate ligaments appear intact. The collateral ligaments, patellar tendon, and quadriceps tendon appear intact. There is slight increased T2 signal of the distal aspect of the quadriceps tendon which may be due to some mild tendinopathy/tendinosis. The patellar cartilage is preserved. No evidence of meniscal tear. Small amount of fluid is present within the knee joint. No evidence of Witt's cyst. No bone marrow edema fracture or dislocation. No significant degenerative change. Radiograph suggested a subcortical lucency along the medial femoral condyle. This is not demonstrated on the MRI and may have been due to overlying artifact. IMPRESSION: Minimal knee joint effusion otherwise negative MRI the right knee. Dictated b Gabriele Serrano MD 12/03/2019 14:42 Gabriele Serrano MD in [place] 12/03/2019 14:42
== END ==
PROVIDERS: PCP Family Medicine; Visit Provider Nurse Practitioner Family
DX: M25.561 Pain in right knee (principal)
CPT/HCPCS: 73721

== ENCOUNTER → 2020-03-14 12:24 | Outpatient (CLI) | payer BC, SELFPAY ==
--- NOTE | 2020-03-14 12:35 | XR_ITS ---
PROCEDURE: XR CHEST 2V CLINICAL HISTORY: SOB,FLUTTERING HEART COMPARISON: CR XR CHEST 2V from 06/26/2019 FINDINGS: The cardiomediastinal silhouette and pulmonary vascularity are within normal limits. The lungs are clear without infiltrates, suspicious nodules, or pleural effusions. No acute bony abnormalities. IMPRESSION: No acute findings. Dictated by: Gabriele Serrano MD 03/14/2020 14:52 Gabriele Serrano MD in [place] 03/14/2020 14:52
--- NOTE | 2020-03-14 12:48 | ECG_ITS ---
APPROVED REPORT Exam: Resting ECG HR:82 bpm ECG Measurements Heart Rate 82 AXES [place] 124 P 70 QRSd 82 QRS 88 QT 364 T 72 QTc 425 Conclusion Normal sinus rhythm Normal ECG Electronically signed by : Chris Dean, 03/14/2020 21:45:56
== END ==
PROVIDERS: PCP Family Medicine; Visit Provider Nurse Practitioner Family
DX: R06.02 Shortness of breath (principal); I49.8 Other specified cardiac arrhythmias
CPT/HCPCS: 71046; 93005; 93225; 93226

== ENCOUNTER → 2020-03-16 07:22 | Outpatient (CLI) | payer BC, SELFPAY ==
--- NOTE | 2020-03-16 | CA_ITS ---
APPROVED REPORT Exam: Exercise Treadmill Technologist: Tyoa Salvador, Ht: 5 ft 1 in Wt: 150 lbs BSA: 1.67 m2 HR: 67 bpm BP: 127/79 mmHg Rhythm: NSR,NORMAL Medical History Medical History: HTN Medications: Lasix,,,,, KCL,,,,, Cardiac Risk Factors: HTN, Smoking, FHX of CAD Stress Test Details Test: Dimas HR Resting HR: 72 bpm Max Heart Rate (APMHR): 174 bpm Max HR Achieved: 161 bpm Target HR (85% APMHR): 147 bpm % of APMHR: 92 Recovery HR: 141 bpm BP Resting BP: 127.0/79.0 mmHg Max BP: 168.0/82.0 mmHg Recovery BP: 168.0/82.0 mmHg ECG Resting ECG: NSR,NORMAL Clinical Exercise duration: 09:30 min Highest Stage Achieved: Exercise capacity: 10.1 METs Stress ECG Conclusion EXERCISED 9:30 ON DIMAS PROTOCOL. MAX HEART RATE 161 BPM WHICH IS 93% OF PM FOR AGE. MAX BP 168/82. METS = 10.1. TEST STOPPED DUE TO SOA AND LEG FATIGUE. MILD CHEST TIGHTNESS WITH SOA. NO ARRHYTHMIAS/ECTOPY. ALLOWING FOR MOTION ARTIFACT THE ST RESPONSE TO EXERCISE IS NORMAL. NORMAL GXT. MYOVIEW IMAGES REPORTED SEPARATELY Electronically signed by : Carlos Melgoza, 03/21/2020 12:18:53
--- NOTE | 2020-03-16 07:25 | NM_ITS ---
APPROVED REPORT Exam: Nuclear Stress Test Indication: Chest pain, SOB, Palpitations, Fatigue, HTN, Tobacco use, Family history Patient Location: Outpatient Stress Tech: Mouna Madeleine NH Tech:Inga Hernandez, ARRT, RT (R)(N) Ht: 5 ft 1 in Wt: 150 lbs Bra Size: 36DD HR: 67 bpm BP: 127/79 mmHg BSA: 1.67 m2 BMI: 28.3 History: Chest pain, SOB, Palpitations, Fatigue, HTN, Tobacco use, Family history Procedure: Patient exercised on Dimas protocol 9:30 minutes and sec, resting heart rate 67 bpm, resting blood pressure 127/79 mmHg, with exercise maximum heart rate achived was 161 bpm which is % of the maximum predicted heart rate and blood pressure was 162/88 mmHg. Test was stopped due to SOA and leg fatigue. Patient has exercise capacity, achieved 10.1 METs of workload on treadmill, the blood pressure response to exercise was . Cardiac Stress and Resting SPECT Images: Cardiac Stress and Resting SPECT images were obtained using technetium 99m Myoview 29.6 mCi stress and 10.41 mCi at rest. Ejection fraction is normal at 64%. No fixed or reversible defects evident. Conclusion: Normal ejection fraction with no evidence of ischemia or infarction Electronically signed by : Gabriele Serrano MD 03/16/2020 16:30:58
--- NOTE | 2020-03-16 09:58 | HMH.ITSHM ---
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 []LASIX POTASSIUM
== END ==
PROVIDERS: PCP Family Medicine; Visit Provider Nurse Practitioner Family
DX: I49.8 Other specified cardiac arrhythmias (principal); R06.02 Shortness of breath
CPT/HCPCS: 78452; 93017; 93306; A9502

== ENCOUNTER 2020-05-11 11:12 | Emergency (ER) | payer BC, SELFPAY ==
[2020-05-11 11:12] VITALS: BP 149/90; PULSE 98; RESP 18; TEMP 36.6; O2SAT 98; BMI 27.3
--- NOTE | 2020-05-11 11:28 | HMH.EDUTC ---
[facility] Disposition Clinical Impression: Exposure to COVID-19 virus Sinusitis Qualifiers: Sinusitis location: unspecified location Chronicity: acute Recurrence: non-recurrent Qualified Code(s): J01.90 - Acute sinusitis, unspecified Disposition: Home, Self-Care Condition on Discharge: Good Instructions: DI for Sinusitis, Preventing the Spread of Coronavirus Discharge Instructions Additional Instructions: Drink plenty of fluids. Take tylenol for pain or fever. Return if you begin to have difficulty breathing. Follow up with your regular doctor. GO TO THE ER FOR ANY WORSENING SYMPTOMS Prescriptions: Benzonatate [Tessalon Perle 100mg Cap] 100 mg PO TIDP PRN #30 cap PRN Reason: Cough Transmission Status: Received by [facility] Azithromycin [Z-Mathew 250mg Tab*] 250 mg PO UD DOSE PK #6 tab Transmission Status: Received by [facility] Referrals: Olivier Lee MD [Primary Care Provider] - Forms: Work/School Release Time of Disposition: 11:33 Medical Decision Making - Medical Records Medical records reviewed: No: I reviewed the patient's medical records. - Jt Inquiry Pt receiving controlled substance: No Vital Signs: 05/11/20 11:12 05/11/20 11:39 Temperature 97.8 F 97.8 F Temperature Source Oral Oral Pulse Rate 98 H Pulse Rate [Right] 98 H Respiratory Rate 18 18 Blood Pressure 149/90 H Blood Pressure [Right Arm] 149/90 H Blood Pressure Mean [Right Arm] 109 02 Sat by Pulse Oximetry 98 Oxygen Delivery Method Room Air Orders (Tests/Meds): ORDERS Category Date Time Status Covid-19 Nasal PCR Sendout P&C Stat Lab 05/11/20 11:18 Received [facility] HPI - General Stated complaint: covid exposure Time Seen by Provider: 05/11/20 11:28 Description of Symptoms (Recalled from Triage Doc. by RN): pt request covid test pt c/o sore throat, cough x 2 days HEENT Symptoms (Recalled from RN notes): Yes Resp Symptoms (Recalled from RN notes): Yes Skin Symptoms (Recalled from RN notes): No MS Symptoms (Recalled from RN notes): No Functional Status (Recalled from RN notes): wnl - History of Present Illness Provider Complaint: She states that she has been having sinus congestion for the past 2 days. 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 - Related Data Home Medications Medication Instructions Recorded Confirmed Levothyroxine Sodium 100 mg PO DAILY 12/29/17 06/26/19 [Levothyroxine 100mcg (0.1MG) Tab] Pantoprazole Sodium [Protonix 40mg 40 mg PO DAILY 01/21/19 06/26/19 tablet] Previous Rx's Medication Instructions Recorded Azithromycin [Z-Mathew 250mg Tab*] 250 mg PO UD DOSE PK #6 tab 05/11/20 Benzonatate [Tessalon Perle 100mg 100 mg PO TIDP PRN #30 cap 05/11/20 Cap] Allergies Allergy/AdvReac Type Severity Reaction Status Date / Time No Known Allergies Allergy Verified 05/11/20 11:15 - Worker's Comp Is this a Worker's Comp case?: No Is this an H Worker's Comp?: No Is this a [place] Worker's Comp?: No [facility] History - Hepatitis A Screen Drug use history?: No High risk sexual behaviors?: No History of sexually transmitted infection?: No Currently employed?: No Childcare worker?: No Do you have indoor plumbing?: Yes Do you have electricity?: Yes Attestation statement:: This patient has been screened for Hepatitis A risk factors. I have reviewed the patient's past medical history: Yes Medical History: Reports:: Gastroesophageal Reflux Disease(GERD), Migraine Denies:: Cancer, Diabetes Mellitus Type 1, Diabetes Mellitus Type 2, MRSA Other Medical History: Reports: Hypothyroidism, Other Other Surgeries: Yes: , Hysterectomy-Total, Tubal Ligation, Other Amputation: No - Social History Smoking Status: Current every day smoker Tobacco Type: cigarettes # Packs/Day (cigarettes): 1 Alcohol Intake: never Occupational Status: employed Housing: house Household Members: spouse, children
[2020-05-11 11:39] VITALS: BP 149/90; PULSE 98; RESP 18; TEMP 36.6; O2SAT 98
[2020-05-12 09:58] LABS: Covid-19 Nasal PCR Sendout P&C Negative
== END 2020-05-11 11:43 | disposition home or self-care (01) ==
PROVIDERS: Emergency Provider Nurse Practitioner Family; PCP Family Medicine
DX: Z20.822 Contact with and (suspected) exposure to COVID-19 (principal); J01.90 Acute sinusitis, unspecified; K21.9 Gastro-esophageal reflux disease without esophagitis; E03.9 Hypothyroidism, unspecified; Z79.899 Other long term (current) drug therapy
CPT/HCPCS: 99202; G0463; U0004

== ENCOUNTER → 2021-01-16 12:52 | Outpatient (CLI) | payer BC, SELFPAY ==
--- NOTE | 2021-01-16 12:56 | XR_ITS ---
PROCEDURE: XR SHOULDER RT MIN 2V CLINICAL INDICATION: RT SHOULDER PAIN COMPARISON: DX XR SHOULDER RT MIN 2V from 08/31/2019 FINDINGS: No fracture or dislocation. No lytic or blastic change. There is normal mineralization. The joint spaces are well-preserved. No significant degenerative/arthritic changes. No erosive changes evident. Other findings:None. IMPRESSION: No acute findings. Dictated by: Gabriele Serrano MD 01/16/2021 15:25 Gabriele Serrano MD in [place] 01/16/2021 15:25
== END ==
PROVIDERS: PCP Family Medicine; Visit Provider Nurse Practitioner Family
DX: M25.511 Pain in right shoulder (principal)
CPT/HCPCS: 73030

== ENCOUNTER → 2021-01-31 10:04 | Outpatient (CLI) | payer BC, SELFPAY ==
--- NOTE | 2021-01-31 10:06 | MR_ITS ---
PROCEDURE INFORMATION: Exam: MR Right Upper Extremity Joint Without Contrast; Shoulder Exam date and time: 01/31/2021 10:06 AM Age: 45 years old Clinical indication: Pain; Shoulder; Right; Additional info: Shoulder pain, acute. Burning and pulling sensation in shoulder. Pain worse [id number]. No injury or trauma. Weakness in arm. Pain when raising arm. Prior x-ray 01-16-21 TECHNIQUE: Imaging protocol: MR of the Right upper extremity without contrast. Exam focused on the shoulder. COMPARISON: 1. CR XR SHOULDER RT MIN 2V 01/16/2021 1:00 PM 2. DX XR SHOULDER RT MIN 2V 08/31/2019 11:22 AM FINDINGS: Bones and cartilage: There is no acute fracture or dislocation. No aggressive bone lesions are present. The undersurface of the acromion is flat, consistent with a type I acromion. Joint spaces: A normal amount of fluid is present in the glenohumeral joint. No significant degenerative change involves the acromioclavicular joint. Glenoid labrum: Unremarkable. No evidence of tear. Bursae: A mild amount of fluid is present in the subacromial-subdeltoid bursa. Supraspinatus tendon: Mild tendinosis involves the supraspinatus tendon. Infraspinatus tendon: Low-grade partial-thickness tearing involves the bursal surface of the infraspinatus tendon. Mild tendinosis involves the adjacent intact infraspinatus tendon. Subscapularis tendon: No tear or significant tendinosis involves the subscapularis tendon. Teres minor tendon: No tear or significant tendinosis involves the teres minor tendon. Tendon of biceps brachii: Mild tendinosis involves the intra-articular portion of the long head of the biceps tendon. Glenohumeral ligaments: Unremarkable. Muscles: The rotator cuff musculature demonstrates no significant edema or atrophy. Soft tissues: Unremarkable. IMPRESSION: 1. Low-grade partial-thickness tearing of the infraspinatus tendon bursal surface, superimposed on mild tendinosis. 2. Mild tendinosis of the supraspinatus tendon and long head of the biceps tendon. 3. Mild subacromial-subdeltoid bursitis.
== END ==
PROVIDERS: PCP Family Medicine; Visit Provider Nurse Practitioner Family
DX: M25.511 Pain in right shoulder (principal)
CPT/HCPCS: 73221

== ENCOUNTER 2022-11-01 10:54 | Emergency (ER) | payer SELFPAY ==
[2022-11-01 11:06] VITALS: BP 103/84; PULSE 110; RESP 20; TEMP 37; O2SAT 100; BMI 23.0
[2022-11-01 11:28] VITALS: BP 153/96; PULSE 88; RESP 15; O2SAT 99
--- NOTE | 2022-11-01 11:35 | HMH.EDGENADL ---
Discharge Plan Disposition Patient Disposition: Home, Self-Care Condition: Good Prescriptions Prescriptions: New prednisone 20 mg tablet 40 mg PO DAILY 3 Days Qty: 6 0RF epinephrine [EpiPen 2-Mathew] 0.3 mg/0.3 mL auto-injector 0.3 mg IM Q10M PRN (Reason: anaphylaxis) Qty: 2 0RF Rx Instructions: for 2 doses No Action hydrochlorothiazide 25 mg tablet 25 mg PO DAILY levothyroxine 25 mcg tablet 25 mcg PO DAILY triamcinolone acetonide 0.5 % cream 1 applic TOPICAL BID 7 Days Qty: 15 0RF pantoprazole 40 MG tablet,delayed release (DR/EC) 40 mg PO DAILY Referrals Follow up/Referrals: Olivier Lee MD [Primary Care Provider] - See instructions Activity Restrictions/Add. Instructions Additional Instructions/Restrictions: Start prednisone tomorrow. EpiPen as needed. Follow-up PCP before the end of the week. Return to the ER for worsening symptoms, shortness of breath Clinical Impressions Clinical Impression: Allergic reaction Qualifiers: Encounter type: initial encounter Qualified Code(s): T78.40XA - Allergy, unspecified, initial encounter Bee sting Qualifiers: Encounter type: initial encounter Injury intent: accidental or unintentional Qualified Code(s): T63.441A - Toxic effect of venom of bees, accidental (unintentional), initial encounter Discharge ED Provider: Linus Mckenna General Adult HPI General Chief complaint: Allergic Reaction Stated complaint: Allergic reaction Time Seen by Provider: 11/01/22 10:55 Mode of Arrival: Ambulatory Source of Information: Patient Limitations: No Limitations Description of Symptoms (Recalled from ER Triage Doc. by RN): pt to ed c/o allergic reaction. 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 pt states difficulty breathing and generalized body swelling. hives noted to the back, torso and right hand. History of Present Illness HPI narrative: 47yo F presents to the ER secondary to difficulty breathing after being stung by a wasp approximately 30 minutes prior to arrival. Reports a history of allergies to bee stings. Took Benadryl 50 mg p.o. prior to arrival. Reports she smokes but denies a history of COPD or need for breathing treatments. Related Data Home Medications Medication Instructions Recorded Confirmed pantoprazole 40 mg tablet,delayed 40 mg PO DAILY GERD 01/21/19 11/29/20 release hydrochlorothiazide 25 mg tablet 25 mg PO DAILY 11/29/20 11/29/20 levothyroxine 25 mcg tablet 25 mcg PO DAILY 11/29/20 11/29/20 Previous Rx's Medication Instructions Recorded triamcinolone acetonide 0.5 % 1 applic topical BID poison tiana 7 11/29/20 topical cream days #15 grams epinephrine 0.3 mg/0.3 mL 0.3 mg (0.3 mL) IM Q10M PRN 11/01/22 injection, auto-injector (EpiPen anaphylaxis #2 ea 2-Mathew) prednisone 20 mg tablet 40 mg PO DAILY 3 days #6 tabs 11/01/22 Allergies Allergy/AdvReac Type Severity Reaction Status Date / Time No Known Allergies Allergy Verified 11/29/20 15:47 [facility] Disclaimer: The information contained in this section may have been updated after the patient was seen, as this information can be updated by other users. Social History Smoking Status: Current every day smoker tobacco type: cigarettes packs per day: 1 alcohol intake: current current occupational status: employed Travel in the last 8 weeks: None household members: spouse and children housing: house ROS Obtained: Yes Systems reviewed as appropriate & no additional complaints except as documented Physical Exam General General appearance: alert and in no apparent distress Head Head exam: atraumatic Eye Eye exam: Present PERRL ENT ENT exam: Present normal oropharynx Neck Neck exam: Present full ROM and trachea midline Chest Chest inspection: Present normal inspection Respiratory Respiratory exam: Present normal lung soun
[2022-11-01 11:48] VITALS: BP 159/98; PULSE 68; O2SAT 99
[2022-11-01 12:30] VITALS: BP 151/90; PULSE 63; RESP 14; O2SAT 99
--- NOTE | 2022-11-01 12:30 | PC.NURSE ---
Rounded on patient; pt reports she is still feeling facial swelling at this time. JOEL Nava and Dr. Mckenna aware. Call tavares within reach
[2022-11-01 13:19] VITALS: BP 122/91; PULSE 71; O2SAT 98
[2022-11-01 13:56] VITALS: BP 133/83; PULSE 82; RESP 17; TEMP 36.7; O2SAT 99
== END 2022-11-01 14:00 | disposition home or self-care (01) ==
PROVIDERS: Emergency Provider Family Medicine; PCP Family Medicine
DX: T63.441A Toxic effect of venom of bees, accidental (unintentional), initial encounter (principal); R06.89 Other abnormalities of breathing; F17.210 Nicotine dependence, cigarettes, uncomplicated
CPT/HCPCS: 96374; 96375; 99285

== ENCOUNTER 2023-06-04 10:30 | Emergency (ER) | payer BC, SELFPAY ==
[2023-06-04 10:45] VITALS: BP 153/90; PULSE 69; RESP 21; TEMP 36.7; O2SAT 97; BMI 27.1
[2023-06-04 10:53] LABS: Color,Urine Dark Yellow (Yellow)
[2023-06-04 10:54] LABS: Apearance,Urine Cloudy (Clear); Bilirubin,Urine Negative (Negative); Blood, Urine 1+ (Negative); Glucose,Urine (UA) Negative (Negative); Ketones,Urine Negative (Negative); Protein,Urine 1+ (Negative); UTC Leukocyte Esterase,Urine 3+ (Negative); UTC Nitrate,Urine Negative (Negative); Urobilinogen,Urine 1 EU/dl (0.2)
--- NOTE | 2023-06-04 11:07 | ED_ITS ---
Discharge Plan Disposition Patient Disposition: Home, Self-Care Condition: Good Prescriptions Prescriptions: New cefdinir 300 mg capsule 300 mg PO BID Qty: 20 0RF phenazopyridine [Pyridium] 200 mg tablet 200 mg PO TID 2 Days Qty: 6 0RF Referrals Follow up/Referrals: Olivier Lee MD [Primary Care Provider] - See instructions Activity Restrictions/Add. Instructions Additional Instructions/Restrictions: *Increase fluids. Water not Soda or Tea *Start antibiotic immediately and be sure to take as ordered for the FULL length of time although you should start to see improvement over the next 48 hours *Pyridium as needed Remember this medication will turn your urine . This is normal but it will stain what ever it gets on *You should not use Pyridium for more than 48 hours. If so , follow up with your primary physician to review urine culture and ensure that antibiotic is adequate for infection *Be SURE to follow up anytime for new or worsening symptoms with your family doctor. AND in 48 hours for urine culture results with your family doctor, if you do not have a doctor then you may call back to the [facility] for urine culture results and further treatment. We do recommend that you choose and establish care with a Primary Care Physician. ?AND follow up with them ?in 10-14 days to repeat UA to ensure infection is resolved and blood no longer present *Be sure to let your PCP know that we sent urine cultures from the [facility] so they can follow up to ensure that you area the on the correct antibiotic Call your doctor office and make appointment for 48 hours (2 days from today) ?to follow up and get the results of your urine culture and further treatment Clinical Impressions Clinical Impression: UTI (urinary tract infection) Qualifiers: Urinary tract infection type: site unspecified Hematuria presence: with hematuria Qualified Code(s): N39.0 - Urinary tract infection, site not specified ; R31.9 - Hematuria, unspecified Instructions Patient Instructions: DI for Urinary Tract Infection (UTI), Cefdinir Discharge ED Provider: Lucía Fountain [facility] HPI General Stated complaint: pain, burning when urinating Mode of Arrival: Ambulatory Source of Information: Patient Limitations: No Limitations Time Seen by Provider: 06/04/23 11:10 Description of Symptoms (Recalled from Triage Doc. by RN): PATIENT C/O BURNING AND PAIN WITH URINATION SINCE SATURDAY HEENT Symptoms (Recalled from RN notes): No Resp Symptoms (Recalled from RN notes): No Skin Symptoms (Recalled from RN notes): No MS Symptoms (Recalled from RN notes): No Functional Status (Recalled from RN notes): WNL History of Present Illness Provider Complaint: Patient states that she thinks she has a UTI States that she has been having urgency and frequency and burning with urination since Saturday States that today she was still having symptoms so she came in to get checked Related Data Previous Rx's Medication Instructions Recorded cefdinir 300 mg capsule 300 mg PO BID #20 caps 06/04/23 phenazopyridine 200 mg tablet 200 mg PO TID 2 days #6 tabs 06/04/23 (Pyridium) Allergies Allergy/AdvReac Type Severity Reaction Status Date / Time No Known Allergies Allergy Verified 11/29/20 15:47 Worker's Comp Is this a Worker's Comp case?: No [facility] Disclaimer: The information contained in this section may have been updated after the patient was seen, as this information can be updated by other users. Medical History (Updated 06/04/23 @ 11:15 by Lucía Fountain APRN) Hypertension Kidney stone Migraine Urinary tract infection Surgical History (Updated 06/04/23 @ 10:58 by Caity Washburn RN) History of section History of hysterectomy History of tubal ligation Social History Smoking Status: Current every day smoker tobacco type: cigarettes packs per day: 1 alcohol intake: current current occupational status: employed Travel in the last 8 weeks: None household members: spouse and children housing: house ROS Obtained: Yes All systems reviewed & no additional complaints except as documented and Yes Systems reviewed as appropriate & no additional complaints except as documented Constitutional Constitutional: Reports system reviewed and no additional complaints, except as documented, Reports as per HPI, Denies body ache, Denies chills and Denies fever(s) ENT Ears, Nose, Mouth, and Throat: Reports system reviewed and no additional complaints, except as documented and Reports as per HPI Cardiovascular Cardiovascular: Reports system reviewed and no additional complaints, except as documented and Reports as per HPI Respiratory Respiratory: Reports system reviewed and no additional complaints, except as documented and Reports as per HPI Gastrointestinal Gastrointestingal: Reports system reviewed and no additional complaints, except as documented and as per HPI; Denies abdominal pain or nausea Genitourinary Female Genitourinary: Reports system reviewed and no additional complaints, except as documented, Reports as per HPI, Reports dysuria, Reports urinary frequency and Reports urinary urgency Musculoskeletal Musculoskeletal: Reports system reviewed and no additional complaints, except as documented and Reports as per HPI Physical Exam General General appearance: alert and in no apparent distress ENT ENT exam: Present mucous membranes moist Respiratory Respiratory exam: Present normal lung sounds bilaterally; Absent respiratory distress or wheezes Cardiovascular Cardiovascular exam: Present regular rate, normal rhythm and normal heart sounds Abdominal Exam Abdominal exam: Present soft and normal bowel sounds; Absent distention or tenderness Neurological Exam Neurological exam: Present alert, oriented X3 and normal gait Medical Decision Making Jt Inquiry Pt receiving controlled substance: No Jt was queried for this patient: No Vital Signs: 06/04/23 10:45 Temperature 98.1 F Temperature Source Oral Pulse Rate [Left Brachial] 69 Respiratory Rate 21 Blood Pressure [Left Arm] 153/90 H Blood Pressure Mean [Left Arm] 111 Blood Pressure Source [Left Arm] Automatic Cuff Blood Pressure Position [Left Arm] Sitting 02 Sat by Pulse Oximetry 97 Oxygen Delivery Method Room Air Lab Data Lab results reviewed: Yes I reviewed the patient's lab results. Lab Results 06/04/23 10:46: Urine Color Dark yellow, Urine Appearance Cloudy, Urine pH 7.0, Ur Specific [place] 1.020, Urine Protein 1+, Urine Glucose (UA) Negative, Urine Ketones Negative, Urine Blood 1+, Urine Nitrate Negative, Urine Bilirubin Negative, Urine Urobilinogen 1, Ur Leukocyte Esterase 3+ A Orders (Tests/Meds): ORDERS Category Date Time Status Urine Culture Stat Micro 06/04/23 10:53 Ordered
[2023-06-04 11:16] VITALS: BP 153/90; PULSE 69; RESP 21; TEMP 36.7; O2SAT 97
== END 2023-06-04 11:19 | disposition home or self-care (01) ==
PROVIDERS: Emergency Provider Nurse Practitioner; PCP Family Medicine
DX: N39.0 Urinary tract infection, site not specified (principal); B95.7 Other staphylococcus as the cause of diseases classified elsewhere; B96.29 Other Escherichia coli [E. coli] as the cause of diseases classified elsewhere; R31.9 Hematuria, unspecified; F17.210 Nicotine dependence, cigarettes, uncomplicated; I10 Essential (primary) hypertension
CPT/HCPCS: 81003; 87086; 99204; 99212; G0463

== ENCOUNTER 2024-06-11 12:07 | Emergency (ER) | payer BC, SELFPAY ==
[2024-06-11 12:11] VITALS: BP 216/102; PULSE 98; RESP 18; TEMP 36.9; O2SAT 98; BMI 26.8
--- NOTE | 2024-06-11 12:25 | ED_ITS ---
<Statement entered by Rina Hernadez MD - 06/11/24 16:14> I was consulted by the TYLER, and we discussed the complexity of problems being addressed. I approved the treatment and management plan for this patient's care in the emergency department, thus performing a substantive portion of the medical decision making. Rina Hernadez MD Discharge Plan Disposition Patient Disposition: Home, Self-Care Condition: Good Prescriptions Prescriptions: New nitrofurantoin monohyd/m-cryst 100 mg capsule 100 mg PO BID 14 Days Qty: 28 0RF Rx Instructions: must administer with a meal/food phenazopyridine [Pyridium] 200 mg tablet 200 mg PO Q8H PRN (Reason: pain) Qty: 10 0RF No Action cefdinir 300 mg capsule 300 mg PO BID Qty: 20 0RF phenazopyridine [Pyridium] 200 mg tablet 200 mg PO TID 2 Days Qty: 6 0RF Referrals Follow up/Referrals: Olivier Lee MD [Primary Care Provider] - See instructions Activity Restrictions/Add. Instructions Additional Instructions/Restrictions: Please take antibiotic till its gone. Follow-up with your PCP next week for recheck. If you have any increasing pain fever inability to pee return to the emergency department. Clinical Impressions Clinical Impression: Cystitis Instructions Patient Instructions: DI for Acute Abdominal Pain Print Language Print Language: Ivorian Discharge ED Provider: Rina Hernadez General Adult HPI General Chief complaint: Abdominal Pain Stated complaint: pain in lower abd Time Seen by Provider: 06/11/24 12:21 Mode of Arrival: Ambulatory Source of Information: Patient Limitations: No Limitations Description of Symptoms (Recalled from ER Triage Doc. by RN): Pt presents for evaluation of RLQ abdominal pain x 3 days. Pt has had nausea, and states pain is worse when she walks. Rates pain as a 8/10 Pt still has her appendix, Hx of ovarian cysts. History of Present Illness HPI narrative: Patient presents for evaluation of 3 days of right lower quadrant abdominal pain. Patient states that she has had 3 days of consistent right lower quadrant abdominal pain. She denies any fever chills hemoptysis hematochezia melena vomiting but has nausea and loose stool. Patient has had a total abdominal hysterectomy but still has her ovaries. She still has her appendix. She does have a history of ovarian cysts as well. She is not intolerant of oral intake but has had no appetite today. Related Data Previous Rx's ?Medication ?Instructions ?Recorded cefdinir 300 mg capsule 300 mg PO BID #20 caps 06/04/23 phenazopyridine 200 mg tablet 200 mg PO TID 2 days #6 tabs 06/04/23 (Pyridium) nitrofurantoin 100 mg PO BID 14 days #28 caps 06/11/24 monohydrate/macrocrystals 100 mg capsule phenazopyridine 200 mg tablet 200 mg PO Q8H PRN pain 6 doses #10 06/11/24 (Pyridium) tabs Allergies Allergy/AdvReac Type Severity Reaction Status Date / Time No Known Allergies Allergy Verified 11/29/20 15:47 [facility] Disclaimer: The information contained in this section may have been updated after the patient was seen, as this information can be updated by other users. Medical History (Updated 06/11/24 @ 13:49 by RAGHU Monaco) Urinary tract infection Kidney stone Migraine Hypertension Surgical History (Updated 06/04/23 @ 10:58 by Caity Washburn RN) History of tubal ligation History of hysterectomy History of section Social History Smoking Status: Current every day smoker tobacco type: cigarettes packs per day: 1 alcohol intake: current alcohol intake frequency: holidays/special occasions only current occupational status: employed Travel in the last 8 weeks: None household members: spouse and children housing: house Have you lived/traveled outside [place] in past 30 days?: No Contact w/someone who lives/traveled outside US past 30 days?: No Exposure to someone with infectious disease in past 14 days?: No Do you have a fever (greater than 100.4 F or 38 C)?: No Have you tested positive for COVID-19: No Exposed to someone with COVID-19 in past 14 days?: No Do you have a sore throat?: No Do you have a cough?: No Do you have any weakness?: No Do you have any diarrhea?: No Are you experiencing any unusual bleeding?: No Do you have any muscle aches/pain?: No Do you have any abdominal pain?: No Are you experiencing loss of taste or smell?: No Other Medical History Have you received the Flu Vaccine for this season: No Have you received the Pneumonia Vaccine: No ROS Obtained: Yes Systems reviewed as appropriate & no additional complaints except as documented Physical Exam General General appearance: alert and in no apparent distress Respiratory Respiratory exam: Present normal lung sounds bilaterally Cardiovascular Cardiovascular exam: Present regular rate Neurological Exam Neurological exam: Present alert and oriented X3 Medical Decision Making Medical Records Medical records reviewed: Yes I reviewed the patient's medical records. Screening: Per USPSTF and CDC recommendations, given the prevalence of disease in our region, it is our hospital?s policy to screen for HIV and viral Hepatitis for all patients aged 18 and over and those with ongoing risk factors. Jt Inquiry Pt receiving controlled substance: No Vital Signs: 06/11/24 12:11 06/11/24 12:30 Temperature 98.4 F Temperature Source Oral Pulse Rate 89 Pulse Rate [Right] 98 H Respiratory Rate 18 Blood Pressure 186/108 H Blood Pressure [Right Arm] 216/102 H Blood Pressure Mean [Right Arm] 140 Blood Pressure Source [Right Arm] Automatic Cuff Blood Pressure Position [Right Arm] Sitting 02 Sat by Pulse Oximetry 98 97 Oxygen Delivery Method Room Air Lab Data Lab results reviewed: Yes I reviewed the patient's lab results. Lab Results 06/11/24 12:26: WBC 7.6, RBC 4.58, Hgb 14.5, Hct 41.9, MCV 91.5, MCH 31.7 H, MCHC 34.6, RDW 13.0, Plt Count 320, MPV 9.1, Neut % (Auto) 60.2, Lymph % (Auto) 31.4, [place] % (Auto) 4.9, Eos % (Auto) 2.1, Baso % (Auto) 1.1, Neut # (Auto) 4.6, Lymph # (Auto) 2.4, [place] # (Auto) 0.4, Eos # (Auto) 0.2, Baso # (Auto) 0.1, Sodium 141, Potassium 3.7, Chloride 107, Carbon Dioxide 26, Anion Gap 11.7, BUN 10, Creatinine 0.70, Estimated Creat Clear 98, Estimated GFR 89, Est GFR ( Amer) 107, Glucose 110 H, Calcium 9.3, Total Bilirubin 0.4, AST 27, ALT 22, Alkaline Phosphatase 86, Total Protein 7.4, Albumin 4.7, Globulin 2.7, Albumin/Globulin Ratio 1.7, Procalcitonin < 0.030 02/20/25 12:30: Urine Color Yellow, Urine Appearance Clear, Urine pH 6.5, Ur Specific [place] 1.010, Urine Protein Negative, Urine Glucose (UA) Negative, Urine Ketones Negative, Urine Blood Negative, Urine Nitrate Negative, Urine Bilirubin Negative, Urine Urobilinogen 0.2, Ur Leukocyte Esterase Negative, Urine RBC None, Urine WBC None, Ur Squamous Epith Cells 3-5, Urine Bacteria 4+ 06/11/24 12:26 06/11/24 12:26 Orders (Tests/Meds): ED MEDICATIONS Discontinued Medications Generic Name Dose Route Start Last Admin Trade Name Freq PRN Reason Stop Dose Admin Acetaminophen 1,000 mg 06/11/24 12:26 06/11/24 12:30 Acetaminophen 500mg Tab PO 06/11/24 12:27 1,000 mg ONCE ONE Administration Iopamidol 75 ml 06/11/24 12:57 06/11/24 12:59 Iopamidol-370 (76%);100ml Bottle IV 06/11/24 12:58 75 ml ONCE ONE Administration Ketorolac Tromethamine 15 mg 06/11/24 12:26 06/11/24 12:31 Ketorolac 30mg/Ml Vial IV 06/11/24 12:27 15 mg ONCE ONE Administration Ondansetron HCl 4 mg 06/11/24 12:26 06/11/24 12:30 Ondansetron 4mg/2ml Vial IV 06/11/24 12:27 4 mg ONCE ONE Administration Sodium Chloride 10 ml 06/11/24 12:57 06/11/24 12:59 Sodium Chloride 0.9% 10ml Syr (Rad Only) IV 06/11/24 12:58 10 ml ONCE ONE Administration ORDERS Category Date Time Status CT abdomen pelvis w con Stat Cat Scan 06/11/24 12:26 Completed CBC w/Auto Diff [Complete Blood Count Auto Diff] Stat Lab 06/11/24 12:26 Completed CMP [Comprehensive Metabolic Panel] Stat Lab 06/11/24 12:26 Completed Procalcitonin Stat Lab 06/11/24 12:26 Completed UA [Urinalysis and Microscopic] Stat Lab 06/11/24 12:30 Completed Urine Culture Stat Micro 06/11/24 12:30 Received Medical Decision Narrative: In summary patient is a 49-year-old female who presents to the emergency department for evaluation of right lower quadrant abdominal pain. Patient is hypertensive with a blood pressure of 216/102 heart rate 98 normal sinus rhythm on the bedside monitor breathing 18 times a minute satting at 98% on room air of upon arrival, afebrile at 98.4. Physical exam is remarkable for tenderness to palpation in the right lower quadrant but is not focally so. She has no rebound no guarding no rigidity. Bowel sounds normal active. Patient has no CVA tenderness to percussion bilaterally.. Differential diagnosis includes ovarian cyst versus appendicitis versus kidney stone versus urinary tract infection versus colitis etc. Initial workup will be conducted with hematologic labs CT scan abdomen pelvis urinalysis. Initial interventions include Tylenol Toradol Zofran crystalloid bolus. Initial workup reviewed by me shows that her hematologic labs are nonactionable with normal white count with no neutrophilic shift procalcitonin of 0.030 and a urinalysis that is nitrite leukocyte Estrace and blood negative on dipstick however she has 4+ bacteria but no red-white or epithelial cells on microscopic. My informed interpretation of her CT scan abdomen pelvis however shows a distended thick-walled bladder which could be consistent with cystitis.. Upon repeat evaluation patient reported significant improvement after initial intervention. Given this patient is appropriate for discharge with prescription for Macrobid for 2 weeks and Pyridium and follow-up with her PCP within 48 hours for recheck and strict return precautions. Critical Care Critical Care Time Critical Care Time: No
--- NOTE | 2024-06-11 12:26 | CT_ITS ---
FINAL REPORT TECHNIQUE: Thin section axial images were obtained through the abdomen after intravenous contrast. Reconstruction images were obtained from the axial data. Exam was performed using dose reduction techniques. CLINICAL HISTORY: Right lower quadrant abdominal pain FINDINGS: There is a 5 mm lingular pulmonary nodule well-seen on image 9 of series 3. The liver is homogeneous but mildly enlarged. There is a very small hypodense lesion in the lateral segment of the left hepatic lobe. The gallbladder is present. The spleen, adrenal glands, and pancreas are unremarkable. There is no hydronephrosis or solid renal mass. Abdominal GI tract is without acute abnormality. There is no abdominal lymphadenopathy or ascites. The appendix is absent. There is subtle abnormal attenuation surrounding the urinary bladder, cystitis is not excluded. The pelvic portions of the GI tract, including the appendix, are without acute abnormality. There is no pelvic lymphadenopathy or ascites. No acute osseous abnormalities identified. IMPRESSION: Possible cystitis. Pulmonary nodule in the lingula measures 5 mm. Recommend 6 to 12-month follow-up chest CT. Reviewed, Interpreted and Dictated by Janis Carney MD Transcribed by Harper Rainey Authenticated and [facility]
[2024-06-11 12:30] VITALS: BP 186/108; PULSE 89; O2SAT 97
[2024-06-11] MEDS: ACETAMINOPHEN 500MG TAB 1000 MG PO (12:30)
[2024-06-11] MEDS: ONDANSETRON 4MG/2ML VIAL 4 MG IV (12:30)
[2024-06-11 12:31] VITALS: BP 167/82; PULSE 96; O2SAT 93
[2024-06-11] MEDS: KETOROLAC 30MG/ML VIAL 15 MG IV (12:31)
[2024-06-11 12:33] LABS: Microscopic, Urine URINE MICROSCOPIC (MICROSCOPIC)
[2024-06-11 12:34] LABS: Basophils # 0.1 K/mm3 (0-0.2); Basophils % 1.1 % (0.1-2.0); Eosinophils # 0.2 K/mm3 (0.0-0.4); Eosinophils % 2.1 % (0.1-12.0); Hematocrit 41.9 % (37.0-47.0); Hemoglobin 14.5 g/dL (12.2-16.2); Lymphocytes # 2.4 K/mm3 (0.7-4.5); Lymphocytes % 31.4 % (10-50); Mean Corpuscular HGB Conc 34.6 g/dL (31.8-35.4); Mean Corpuscular Hemoglobin 31.7 pg (27.0-31.2); Mean Corpuscular Volume 91.5 fl (81-99); Mean Platelet Volume 9.1 fl (7.4-10.4); Monocytes # 0.4 K/mm3 (0.1-1.0); Monocytes % 4.9 % (1.7-9.3); Neutrophils # 4.6 K/mm3 (1.8-7.8); Neutrophils % 60.2 % (37.0-80.0); Platelet Count 320 K/mm3 (142-424); Red Blood Count 4.58 M/mm3 (4.20-5.40); White Blood Count 7.6 K/mm3 (4.8-10.8)
[2024-06-11 12:35] LABS: Appearance,Urine CLEAR (Clear); Bilirubin,Urine Negative (Negative); Blood, Urine Negative (Negative); Color,Urine YELLOW (Yellow); Glucose,Urine (UA) Negative (Negative); Ketones,Urine Negative (Negative); Leukocyte Esterase,Urine Negative (Negative); Nitrate,Urine Negative (Negative); PH,Urine 6.5 (5.0-8.5); Protein,Urine Negative (Negative); Urobilinogen,Urine 0.2 EU/dl (0.2)
[2024-06-11 12:38] LABS: Chloride 107 mmol/L (98-107)
[2024-06-11 12:39] LABS: Albumin Level 4.7 g/dl (3.5-5.0); Potassium 3.7 mmoL/L (3.5-5.1); Sodium 141 mmol/L (136-145)
[2024-06-11 12:41] LABS: Alanine Aminotransferase 22 U/L (12-78); Anion Gap 11.7 mEq/L (5-15); Aspartate Amino Transferase 27 U/L (14-36); Blood Urea Nitrogen 10 mg/dl (7-17); Carbon Dioxide 26 mmol/L (22.0-30.0); Creatinine Clearance Estimated 98 mL/min (50-200); Estimated Glomerular Filt Rate 89 ml/min (>60); GFR (African American) 107 ML/MIN (>60)
[2024-06-11 12:42] LABS: Albumin/Globulin Ratio 1.7 (1.1-1.8); Alkaline Phosphatase 86 U/L (38-126); Bilirubin,Total 0.4 mg/dl (0.2-1.3); Calcium 9.3 mg/dl (8.4-10.2); Globulin 2.7 g/dL (1.3-3.2); Glucose 110 mg/dl (74-100); Total Protein,Serum 7.4 g/dl (6.3-8.2)
[2024-06-11 12:56] LABS: Bacteria,Urine 4+ /lpf
[2024-06-11 12:59] LABS: Procalcitonin < 0.030 ng/mL (0.0-2.0)
[2024-06-11] MEDS: SODIUM CHLORIDE 0.9% 10ML SYR (RAD ONLY) 10 ML IV (12:59)
[2024-06-11] MEDS: IOPAMIDOL-370 (76%);100ML BOTTLE 75 ML IV (12:59)
[2024-06-11 13:30] VITALS: BP 168/96; PULSE 79; O2SAT 98
[2024-06-11 14:00] VITALS: BP 168/96; PULSE 79; RESP 16; TEMP 36.9; O2SAT 97
--- NOTE | 2024-06-13 07:50 | PC.NURSE ---
URINE CULTURE DISCUSSED WITH DR CRAWFORD, NO NEW ORDERS
== END 2024-06-11 14:02 | disposition home or self-care (01) ==
PROVIDERS: Physician Assistant; Emergency Provider Student in an Organized Health Care Education/Training Program; PCP Family Medicine
DX: N30.90 Cystitis, unspecified without hematuria (principal); R10.31 Right lower quadrant pain; R11.0 Nausea; F17.210 Nicotine dependence, cigarettes, uncomplicated
CPT/HCPCS: 74177; 80053; 81001; 84145; 85025; 87086; 87088; 87186; 96374; 96375; 99285; J1885; J2405; Q9967

== ENCOUNTER 2024-06-14 10:46 | Outpatient (CLI) | payer BC, SELFPAY | END 2024-06-14 23:59 | disposition home or self-care (01) | LOC: LAB.DROPOF 06-15 10:03 | PROVIDERS: PCP Student in an Organized Health Care Education/Training Program; Visit Provider Student in an Organized Health Care Education/Training Program | DX: N39.0 Urinary tract infection, site not specified (principal) | CPT/HCPCS: 87086; 87088; 87186 ==

== ENCOUNTER 2024-08-24 09:25 | Outpatient (CLI) | payer BC, SELFPAY ==
[2024-08-24 18:46] LABS: Microscopic, Urine URINE MICROSCOPIC (MICROSCOPIC)
[2024-08-24 19:02] LABS: Basophils # 0.1 K/mm3 (0-0.2); Eosinophils # 0.2 Kmm3 (0.0-0.4); Eosinophils % 2.2 % (0.1-12.0); Hematocrit 41.8 % (37.0-47.0); Hemoglobin 14.2 g/dL (12.2-16.2); Lymphocytes # 2.3 K/mm3 (0.7-4.5); Lymphocytes % 33.1 % (10-50); Mean Corpuscular Hemoglobin 32.1 pg (27.0-31.2); Mean Corpuscular Volume 94.6 fl (81-99); Mean Platelet Volume 9.8 fl (7.4-10.4); Monocytes # 0.4 K/mm3 (0.1-1.0); Monocytes % 6.3 % (1.7-9.3); Neutrophils # 3.9 K/mm3 (1.8-7.8); Neutrophils % 57.1 % (37.0-80.0); Nucleated Red Blood Cells # 0 10^3/uL; Nucleated Red Blood Cells % 0 %; Platelet Count 349 K/mm3 (142-424); Red Blood Count 4.42 M/mm3 (4.20-5.40); Red Cell Distribution Width 13.3 % (11.5-17.5); Red Cell Distribution Width-SD 46.6 fL; White Blood Count 6.8 K/mm3 (4.8-10.8)
[2024-08-24 20:17] LABS: Alanine Aminotransferase 15 U/L (12-78); Albumin Level 4.4 g/dl (3.5-5.0); Albumin/Globulin Ratio 1.9 (1.1-1.8); Alkaline Phosphatase 77 U/L (38-126); Anion Gap 6.9 mEq/L (5-15); Aspartate Amino Transferase 20 U/L (14-36); Bilirubin,Total 0.5 mg/dl (0.2-1.3); Blood Urea Nitrogen 12 mg/dl (7-17); Calcium 9.5 mg/dl (8.4-10.2); Carbon Dioxide 28 mmol/L (22.0-30.0); Chloride 110 mmol/L (98-107); Chol/HDL Ratio 5.9 (1-3.5); Cholesterol 249 mg/dl (140-200); Estimated Glomerular Filt Rate 89 ml/min (>60); GFR (African American) 107 ML/MIN (>60); Globulin 2.3 g/dL (1.3-3.2); Glucose 87 mg/dl (74-100); HDL Cholesterol 42 mg/dl (40-60); Potassium 3.9 mmoL/L (3.5-5.1); Sodium 141 mmol/L (136-145); Total Protein,Serum 6.7 g/dl (6.3-8.2); Triglycerides 155 mg/dl (30-150); VLDL Cholesterol 31 mg/dL (0-40)
[2024-08-24 20:18] LABS: Appearance,Urine CLEAR (Clear); Bilirubin,Urine Negative (Negative); Blood, Urine TRACE-I (Negative); Color,Urine YELLOW (Yellow); Glucose,Urine (UA) Negative (Negative); Ketones,Urine Negative (Negative); Leukocyte Esterase,Urine Negative (Negative); Nitrate,Urine Negative (Negative); PH,Urine 6.5 (5.0-8.5); Protein,Urine Negative (Negative); Specific Gravity, Urine 1.015 (1.005-1.030); Urobilinogen,Urine 0.2 EU/dl (0.2)
[2024-08-24 20:28] LABS: Direct LDL Cholesterol 161.65 mg/dL (100-129)
[2024-08-24 20:35] LABS: Creatinine,Urine Random 90 mg/dL (Not Estab.)
[2024-08-24 20:36] LABS: Microalbumin/Creatinine Ratio 10.6
[2024-08-24 20:39] LABS: Free T4 (Free Thyroxine) 1.27 ng/dl (0.78-2.19)
[2024-08-24 20:41] LABS: 25-OH Vitamin D, Total 33.4 ng/mL (30-100)
[2024-08-24 20:48] LABS: Thyroid Stimulating Hormone 4.41 uIU/mL (0.465-4.68)
[2024-08-24 20:49] LABS: Bacteria,Urine 1+ /lpf; WBC,Urine Occasional #/hpf (0-3)
[2024-08-24 20:54] LABS: HIV Combo NEGATIVE (Negative)
[2024-08-24 21:05] LABS: Hepatitis C Ab Qual. W/ RFX NEGATIVE (Negative)
[2024-08-24 21:07] LABS: Vitamin B12 701 pg/mL (239-931)
[2024-08-24 22:37] LABS: Hemoglobin A1C 5.3 % (4.0-6.0)
--- OUTSIDE RECORDS SUMMARY | 2024-08-25 08:42 | XMS_ITS | Data Portability ---
Author Organization CE - MARLYE Negrete [place] [facility] Address [address] [facility] [address] [place] [address] Assessment Encounter Date Assessment Date Assessment LastModified by Organization Details LastModified Time 10/05/2021 10/05/2021 Assessment: Ref MD: RAGHU Wheeler Patient symptoms are consistent with right shoulder impingement following surgery for biceps tenodesis secondary to strength deficits of the scapular stabilizers resulting in scapular dyskinesis Primary purpose of PT: Restore the functional use of patient's right dominant upper extremity without pain so she can perform normal daily activities as well as return to her job. Prognosis: Good. Patient has significant strength deficits of the right scapular stabilizers as well as internal rotation deficit resulting in scapular dyskinesis. Therefore patient is impinging significantly at the superior aspect of the shoulder. This appears to be causing inflammation in the subacromial space and at the right AC joint resulting in pain and significant palpable tenderness. Complicating factors: 1.Personal-(socia l/co-morbidities/ cognition/communi cation)- -Pathology involves the right dominant upper extremity. 2.Body Structure and Function-right shoulder Muscle weakness(MMT): 3+/5 AROM limitations: Moderate Postural deficits: Mild Neuromuscular deficits/motor control/coordinat ion: Right scapular dyskinesis Integumentary: Negative Cardiopulmonary: Negative 3.Clinical presentation-low/ stable Functional limitations: Right shoulder ADL's:dress-modif ies pulling shirt on/off. 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 She cannot do all of her housecleaning in 1 day secondary to significant pain at the superior anterior right shoulder. Functional:cannot lift more than 7 lbs and cannot carry >10lbs. 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 Impact of sx on ADLs: Moderate with an inability to return to her job. Above complicating factors could have an effect on patient's rehabilitation outcome/course of treatment/timelin e. 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 -Decrease the right scapular dyskinesis so patient has decreased impingement -Right internal rotation deficit improved to 65 degrees so patient is able to pull shirt on and off over her head without pain and without modification. 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 Plan: Initial evaluation Modalities as indicated Therapeutic exercise Joint mobilization Soft tissue mobilization Postural education HEP updated and progressed as indicated. Frequency and duration of care is dependent on patient's response to skilled physical therapy intervention. Frequency of treatment: See patient once every 10 days to 2 weeks over the next 8 to 10 weeks. Goals, POT, and rehabilitation potential were discussed and agreed upon with the: Patient [email or web address] Not available 10/05/2021 18:32:18 11/02/2021 11/02/2021 Pt hallie todays visit well. Signs and symptoms consistent with AC jt compression related to scapular dyskinesis. Pt has hx of scapular mm reattachment. No obvious signs of re-injury noted with isometric and palpation exams. anticipate motor planning deficits resulting in poor medial border and inf angle control. Updated TE per flow sheet to initiate light scapular stabilization program. Pt able to complete without complaint. Responds well to man st and STM. Will assess hallie to rx next visit. Continue with POT progressing as hallie. Next appt 11/14/21 Not available 11/07/2021 08:06:28 11/23/2021 11/23/2021 Pt hallie todays rx session well. Continued signs and symptoms consistent with inc AC jt compression resulting in pain with OKC elevation secondary to scapular dyskinesis. Responds well to man st and STM. TE per flow sheet to promote improved coordination. Will assess hallie to rx next visit. Continue with POT progressing as hallie. Next appt 12/06/21 Not available 11/23/2021 15:34:19 Plan of Treatment Reminders Order Date Submit Date Provider Last Modified By Organization Details Last Modified Time Details Appointments None record ed. Lab None record ed. Referral None record ed. Procedures None record ed. Surgeries None record ed. Imaging None record ed. Medication Orders None record ed. Patient TargetsNo targets recorded. Patient Instructions Encounter Date Encounter Id Patient Instructions Last Modified By Organization Details Last Modified Time 10/09/2021 [id number] sp 04/19/21 r sh biceps tenodesis was doing well until then was feeling great night hurts now medrol no help steroid injection by destinee last appt - ac worse after we revd mri 02/09 ac ok PLAN NEW MRI ORDERED XRAY TODAY R SH LOOK AT AC JT SHE IS OFF WORK HOLD THERAPY UNTIL MRI HOLD ON INJECTION phester Not available 10/09/2021 17:49:41 10/16/2021 [id number] Patient agreed with above plan. Follow-up in [address] Velasquez for recheck. Not available 10/17/2021 07:43:13 Reason for Referral None Reported. Results Created Date Observation Date Name Description Value Unit Range Abnormal Flag Note LastModifiedBy Organization Detail LastModifiedTime 10/10/19 22 10/09/2021 XR, shoul librado, 2 or more view [place] [facility] [address] [place] [address] Lottie reese Name: JANNETTE reese : [address] Orderi ng Provid er: VANI VELASQUEZ EXAM DATE: 2021 EXAM: XR RT SHOULD ER COMPLE TE RADIOG RAPHIC VIEWS: 3 COMPAR LIAN: None. HISTOR Y: Right should er pain. FINDIN GS: The bones of the right should er are normal in alignm ent. There is no displa merrick fractu re. There is no degene rative change . The acromi oclavi cular and coraco clavic ular distan herlinda are within normal limits . The visual ized right ribs and right lung appear normal . IMPRES VIKAS: 1. The right should er is normal in appear ance. Interp reted By: Jyotsna aviles MD Electr onical ly Signed By: Jyotsna aviles MD on 022 12:34 PM [facility] [place] [address], [place], [address], 10/12/2021 22:48:51 10/17/19 22 10/16/2021 MRI, mateo pavon, w/o contr ast No observ ation record ed. [facility] [address], [place], [address], 02/09/2022 11:47:13 Result Notes None recorded. Problems Name Problem SNOMED Code Status Onset Date Resolution Date Notes Provider Name and Address Organization Details Recorded Time Shoulder joint pain 700647193 Active 2014 From Automated Load;Prov ider: Christiano Mireles;St atus: Active Not Available [facility] 6 05:22:21 Strain of tendon of upper arm 154219938 Active 2014 From Automated Load;Prov ider: Christiano Mireles;St atus: Active Not Available [facility] 6 05:22:21 Strain of muscle of upper limb 984217076 Active 2014 From Automated Load;Prov ider: Christiano Mireles;St atus: Active Not Available [facility] 6 05:22:21 Spasm 87888447 Active 2015 From Automated Load;Prov ider: Christiano Mireles;St atus: Active Not Available [facility] 7 02:37:14 Chronic intractab le migraine without aura 52028898672 9105 Active 2015 From Automated Load;Prov ider: Bret Kendrick;Sta tus: Active Not Available [facility] 7 06:05:35 Neck pain 85555586 Active 2015 From Automated Load;Prov ider: Bret Kendrick;Sta tus: Active Not Available [facility] 7 06:53:26 Shoulder joint - soft tissue swelling 822314246 Active 2020 KEVIN KITCHEN, PT [address] [place], [address] , [facility] 13:07:34 Pain of right shoulder joint 58977884631 137628 Active 2020 KEVIN KITCHEN, PT [address] [place], [address] , [facility] 13:07:36 Muscle weakness 23475713 Active 2020 KEVIN KITCHEN, PT [address] [place], [address] , [facility] 13:07:39 Muscular incoordin ation 84272165 Active 2020 KEVIN KITCHEN, PT [address] [place], [address] , [facility] 13:07:40 Injury of tendon of long head of biceps 076961963 Active 2021 KEVIN KITCHEN, PT [address] [place], [address] , [facility] 2 16:16:23 Stiffness of right shoulder 44925820122 9103 Active 2021 KEVIN KITCHEN, PT [address] [place], [address] , [facility] 2 16:16:53 History of major orthopedi c surgery 288492123 Active 2021 KEVIN KITCHEN, PT [address] [place], [address] , [facility] 2 16:16:55 Incoordin ation 685563175 Active 2021 KEVIN KITCHEN, PT [address] [place], [address] , [facility] 2 18:25:38 Impingeme nt syndrome of right shoulder region 11114683836 9102 Active 2021 KEVIN KITCHEN, PT [address] [place], [address] , [facility] 2 18:25:51 Problem Notes None recorded. Procedures Surgical History Date Name Laterality Status Provider Name and Address Organization Details Recorded Time 2 PT Manual Therapy completed CHINA ZAMARRIPA II, PT, DPT [address] [place], [address], [facility] 11/23/2021 15:33:11 2 PT Therapeutic Exercise completed CHINA ZAMARRIPA II, PT, DPT [address] [place], [address], [facility] 11/23/2021 15:33:00 2 PT Manual Therapy completed CHINA ZAMARRIPA II, PT, DPT [address] [place], [address], [facility] 11/07/2021 08:06:49 2 PT Therapeutic Exercise completed CHINA ZAMARRIPA II, PT, DPT [address] [place], [address], [facility] 11/07/2021 08:06:36 2 PT Evaluation - Low Complexity completed KEVIN KITCHEN, PT [address] [place], [address], [facility] 10/05/2021 18:24:37 2 PT Therapeutic Exercise completed KEVIN KITCHEN, PT [address] [place], [address], [facility] 10/05/2021 18:24:53 2 Injection Joint/Bursa, Interm completed DESTINEE CASTELLANO PA-C [address] [place], [address], [facility] 09/11/2021 13:03:24 2 PT Therapeutic Exercise completed KEVIN KITCHEN, PT [address] [place], [address], [facility] 08/24/2021 13:13:22 2 PT Therapeutic Exercise completed KEVIN KITCHEN, PT [address] [place], [address], [facility] 08/10/2021 19:07:06 2 PT Manual Therapy completed KEVIN Omer KITCHEN, PT [address] [place], [address], [facility] 08/03/2021 13:04:46 2 PT Therapeutic Exercise completed KEVIN KITCHEN, PT [address] [place], [address], [facility] 08/03/2021 13:04:31 2 PT Manual Therapy completed KEVIN KITCHEN, PT [address] [place], [address], [facility] 07/25/2021 13:25:05 2 PT Therapeutic Exercise completed KEVIN KITCHEN, PT [address] [place], [address], [facility] 07/25/2021 13:24:48 2 PT Manual Therapy completed KEVIN Omer KITCHEN, PT [address] [place], [address], [facility] 07/14/2021 13:27:33 2 PT Therapeutic Exercise completed KEVIN Omer KITCHEN, PT [address] [place], [address], [facility] 07/14/2021 13:27:49 2 PT Manual Therapy completed KEVIN Omer KITCHEN, PT [address] [place], [address], [facility] 06/29/2021 13:11:20 2 PT Therapeutic Exercise completed KEVIN KITCHEN, PT [address] [place], [address], [facility] 06/29/2021 13:09:57 2 PT Manual Therapy completed KEVIN KITCHEN, PT [address] [place], [address], [facility] 06/22/2021 13:08:44 2 PT Therapeutic Exercise completed KEVIN A IMTIAZ, PT [address] [place], [address], [facility] 06/22/2021 13:07:29 2 PT Manual Therapy completed KEVIN A IMTIAZ, PT [address] [place], [address], [facility] 06/09/2021 13:27:59 2 PT Therapeutic Exercise completed KEVIN A IMTIAZ, PT [address] [place], [address], [facility] 06/09/2021 13:26:25 2 PT Manual Therapy completed KEVIN KITCHEN, PT [address] [place], [address], [facility] 06/01/2021 12:49:48 2 PT Therapeutic Exercise completed KEVIN KITCHEN, PT [address] [place], [address], [facility] 06/01/2021 12:51:09 2 PT Manual Therapy completed KEVIN KITCHEN, PT [address] [place], [address], [facility] 05/18/2021 12:22:12 2 PT Therapeutic Exercise completed KEVIN Omer KITCHEN, PT [address] [place], [address], [facility] 05/18/2021 12:21:55 2 PT Evaluation - Low Complexity completed KEVIN A IMTIAZ, PT [address] [place], [address], [facility] 05/09/2021 16:14:10 2 PT Therapeutic Exercise completed KEVIN KITCHEN, PT [address] [place], [address], [facility] 05/09/2021 16:14:27 1 PT Evaluation - Low Complexity completed KEVIN KITCHEN, PT [address] [place], [address], [facility] 03/06/2021 13:00:05 1 PT Therapeutic Exercise completed KEVIN KITCHEN, PT [address] [place], [address], [facility] 03/06/2021 13:00:39 Imaging Results Imaging Date Name Status LastModified by Organiz ation Details LastModified Time 10/09/2021 XR, shoulder, 2 or more view completed [facility] [place] [address] [place], [address], 10/12/2021 22:48:51 10/16/2021 MRI, shoulder, w/o contrast completed [facility] [address], [place], [address], 02/09/2022 11:47:13 Procedure Notes None recorded. Medical Equipment None Reported. Allergies No known drug allergies Medications Name Sig Start Date Stop Date Status Note LastModified by Organization Details LastModified Time blood pressure monitorin g solution kit active Not Available Not Available Not Available hello heart kit 07/20 completed Not Available Not Available Not Available cyclobenz aprine 10 mg tablet Every night at bedtime 03/06 completed Not Available Not Available Not Available furosemid e 40 mg tablet 05/09 completed Not Available Not Available Not Available triamcino lone acetonide 0.5 % topical cream 05/18 completed Not Available Not Available Not Available azithromy chuy 250 mg tablet 03/06 completed Not Available Not Available Not Available ibuprofen 800 mg tablet Every six hours 07/06 completed Duration : 30 days;Louis quency: q6h;Medi cation Descript ion: ibuprofe n; Dosage:1 ; Route:or al; refills: 0; Quantity :60 tablet Not Available Not Available Not Available valacyclo vir 1 gram tablet 07/20 completed Not Available Not Available Not Available hydrocodo ne 5 mg-acetam inophen 325 mg tablet Take 1 tablet every 6 hours by oral route as needed. 07/20 completed Not Available Not Available Not Available ondansetr on HCl 4 mg tablet Take 1 tablet every 8 hours by oral route as needed. 04/27 completed Not Available Not Available Not Available levothyro xine 25 mcg tablet 07/20 completed Not Available Not Available Not Available meloxicam 7.5 mg tablet Take 1 tablet every day by oral route. 10/16 completed Not Available Not Available Not Available oxycodone -acetamin ophen 5 mg-325 mg tablet Take 1 tablet every 4-6 hours by oral route as needed. 04/27 completed Not Available Not Available Not Available potassium chloride ER 20 mEq tablet,ex tended release(p art/cryst ) 05/18 completed Not Available Not Available Not Available benzonata te 100 mg capsule 05/18 completed Not Available Not Available Not Available pantopraz ole 40 mg tablet,de layed release 07/06 completed Not Available Not Available Not Available propranol ol ER 80 mg capsule,2 4 hr,extend ed release Daily 07/06 completed Frequenc y: daily;Me dication Descript ion: proprano lol; Dosage:1 ; Route:or al; refills: 12; Quantity :30 capsule, extended release Not Available Not Available Not Available hydrochlo rothiazid e 25 mg tablet active Not Available Not Available Not Available gabapenti n 100 mg capsule Take 1 capsule every day by oral route at bedtime. 04/27 completed Not Available Not Available Not Available methylpre dnisolone 4 mg tablets in a dose pack as directed on package 10/09 completed Not Available Not Available Not Available Relpax 40 mg tablet As Directed 07/06 completed Duration : 30 days;Louis quency: as direct.; Medicati on Descript ion: eletript an; Dosage:1 ; Route:or al; refills: 11; Quantity :9 tablet Not Available Not Available Not Available cyclobenz aprine 5 mg tablet 07/20 completed Not Available Not Available Not Available hydrochlo rothiazid e 12.5 mg tablet 03/06 completed Not Available Not Available Not Available cyclobenz aprine 7.5 mg tablet Take 1 tablet 3 times a day by oral route. 07/20 completed Not Available Not Available Not Available Vitals Date Recorded Body height Body mass index (BMI) Body weight Provider Name and Address Organization Details Last Updated DateTime 10/09/2021 154.94 cm 26.5 kg/m2 77909.93 g Mouna Branch [facility] 10/09/2021 11:01:40 Date Recorded Body height Body mass index (BMI) Body weight Provider Name and Address Organization Details Last Updated DateTime 10/16/2021 154.94 cm 26.5 kg/m2 80193.93 g [facility] 10/16/2021 14:07:32 Social History Question Answer Notes LastModified by Organizat ion Details LastModified Time Tobacco Smoking Status Current [facility]/16/2021 09:07:56 What Was The Date Of Your Most Recent Tobacco Screening? 07/20/2021 [email or web address] Information not available 07/20/2021 Sex: Unknown Functional Status None recorded. Mental Status None recorded. Family History Nothing Reported. Medical History Condition Response COPD N Blood Clot N Cancer N Stroke N Heart Conditions N Bleeding Disorder N Asthma N Anesthesia Complications N Blood Thinners N Heart Attack ([place]) N Diabetes N Seizures/Epilepsy N Sleep Apnea N Gynecological HistoryNo gynecological history recorded. 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 There is possible partial union along the ulnar and dorsal more cortices. No evidence of osteolysis /osteomyel itis. Radial sty loid tenosynovitis 76693836 M65.4 [id number] VANI VELASQUEZ MD [facility] [place] [address] [place] [address] 02/16/2021 08:49:53 02/16/2021 09:52:04 Scapulalgia 87479747 M25.206 [id number] KEVIN KITCHEN, PT PHYSICAL THERAPY / HAND THERAPY [place] [address] [place] [address] 03/06/2021 09:48:28 03/06/2021 14:36:16 Pain of right shoulder joint 3592098124 7287152 M25.511 Shoulder j oint - soft tissue swelling 694245621 M25.411 Muscle weakness 43574641 M62.81 Muscular incoordination 26305913 R27.8 [id number] VANI VELASQUEZ MD [facility]OPED[facility] [place] [address] [facility] [place] [address] 03/20/2021 13:28:45 03/20/2021 14:55:57 Partial thickness rotator cuff tear 588447707 M75.111 Biceps tendinitis 186330 007 M75.21 [id number] VANI VELASQUEZ MD SURGERY SCHEDULE [address] [place] [address] 04/19/2021 12:26:56 04/19/2021 12:28:37 [id number] DESTINEE CASTELLANO PA-C [facility] [place] [address] [place] [address] 04/27/2021 10:12:08 04/27/2021 11:41:53 Postoperative care [id number] Z48.89 [id number] KEVIN KITCHEN, PT PHYSICAL THERAPY / HAND THERAPY [place] [address] [place] [address] 05/09/2021 10:27:04 05/09/2021 16:25:13 Injury of tendon of long head of biceps 297498657 S46.101D Pain of ri ght shoulder joint 9880329523 0192982 M25.511 Stiffness of right shoulder 8833485034 27918 M25.611 History of major orthopedic surgery 094328765 Z98.390 [id number] KEVIN KITCHEN, PT PHYSICAL THERAPY / [place] [address] 05/18/2021 10:49:36 05/18/2021 13:24:56 Pain of right shoulder joint 3668578574 2175350 M25.511 Injury of tendon of long head of biceps 136278067 S46.101D Muscle weakness 12324467 M62.81 Stiffness of right shoulder 7677716763 43702 M25.874 [id number] DESTINEE CASTELLANO [place] [address] 05/18/2021 12:45:14 05/18/2021 13:20:34 Postoperative care [id number] Z48.89 Patient's motion is still limited today. Still having most pain in the upper trap and around the neck. Plan: Prescripti on for cyclobenza pierre. Continue to work with PT with Kevin. Dry needling as needed. Discussed precaution s with pushing, pulling, lifting with the operative arm in addition to precaution s with overhead, away from body, and behind body movements. [id number] KEVIN KITCHEN, VIGNESH PHYSICAL THERAPY / [place] [address] 06/01/2021 10:48:56 06/01/2021 12:59:25 Pain of right shoulder joint 8190112456 4852869 M25.511 Muscle weakness 26651496 M62.81 Stiffness of right shoulder 5065882309 70131 M25.611 Injury of tendon of long head of biceps 550798358 S46.101D [id number] KEVIN KITCHEN, PT PHYSICAL THERAPY / [place] [address] 06/09/2021 10:54:00 06/09/2021 13:31:52 Pain of right shoulder joint 2286716452 6861549 M25.511 Injury of tendon of long head of biceps 122149350 S46.101D Muscle weakness 97118037 M62.81 Stiffness of right shoulder 9805331167 66340 M25.205 [id number] DESTINEE CASTELLANO PA-C [facility] [place] [address] [place] [address] 06/22/2021 10:48:24 06/22/2021 12:22:22 Postoperative care [id number] Z48.89 Patient is progressin g well postoperat ively. Range of motion is much improved from last visit.Plan :Continue PT and HEP. Progress with gentle strengthen ing. Cyclobenza pierre as needed. Discussed precaution s in great detail moving forward for the next 4 weeks. [id number] KEVIN KITCHEN, PT PHYSICAL THERAPY / HAND [place] [address] 06/22/2021 10:47:40 06/22/2021 13:17:26 Pain of right shoulder joint 3705997873 3354087 M25.511 Injury of tendon of long head of biceps 875556245 S46.101D Muscle weakness 70384482 M62.81 Stiffness of right shoulder 6969982590 58717 M25.637 [id number] KEVIN KITHCEN, PT PHYSICAL THERAPY / HAND THERAPY [place] [address] [place] [address] 06/29/2021 11:04:44 06/29/2021 13:41:17 Pain of right shoulder joint 4242826620 2250233 M25.511 Injury of tendon of long head of biceps 009044104 S46.101D Muscle weakness 88715430 M62.81 Stiffness of right shoulder 4417641205 16294 M25.829 [id number] KEVIN KITCHEN, PT PHYSICAL THERAPY / HAND THERAPY [place] [address] [place] [place] [place] [address] 07/14/2021 10:25:06 07/17/2021 12:56:11 Pain of right shoulder joint [id number] M25.511 Injury of tendon of long head of biceps [id number] S46.101D Muscle weakness 43590884 M62.81 Stiffness of right shoulder [id number] 77584 M25.778 [id number] DESTINEE CASTELLANO PA-C [facility] [place] [address] [place] [address] 07/20/2021 11:15:35 07/20/2021 12:17:23 Postoperative care [id number] Z48.89 I have very low suspicion for reinjury of surgical biceps tenodesis as majority of her pain is located medial to this area. Likely is localized to the pectoralis muscle. I do also feel she has significan t tightness in her right upper trap and parascapul ar musculatur e. Plan: Medrol Dosepak. Continue cyclobenza pierre as needed. Continue PT with dry needling. [id number] KEVIN KITCHEN, PT [facility] [address] 07/25/2021 10:52:57 07/25/2021 14:17:35 Pain of right shoulder joint [id number] M25.511 Injury of tendon of long head of biceps 125379920 S46.101D Muscle weakness 45633240 M62.81 Stiffness of right shoulder [id number] 65263 M25.198 [id number] KEVIN KITCHEN, PT PHYSICAL THERAPY / HAND THERAPY [place] [address] [place] [address] 08/03/2021 10:25:49 08/03/2021 16:27:56 Pain of right shoulder joint [id number] 5775932 M25.511 Injury of tendon of long head of biceps 727003460 S46.101D Muscle weakness 79303669 M62.81 Stiffness of right shoulder [id number] 89995 M25.618 [id number] KEVIN KITCHEN, PT PHYSICAL THERAPY / HAND THERAPY [place] [address] [place] [address] 08/10/2021 10:26:20 08/11/2021 08:02:21 Pain of right shoulder joint [id number] 1187864 M25.511 Injury of tendon of long head of biceps 035503935 S46.101D Muscle weakness 38644680 M62.81 Stiffness of right shoulder 3188939402 41447 M25.774 [id number] DESTINEE CASTELLANO PA-C ORTHOPEDI [facility] [address] [place] [address] 08/24/2021 10:22:33 08/24/2021 11:34:22 Postoperative care [id number] Z48.89 Patient is progressin g well postoperat ively. Much improved strength and range of motion today. Plan: Recommend that patient continue to progress into normal activities as tolerated. Discussed precaution s of heavy pushing, pulling, lifting. Prescripti on for meloxicam given to patient today to take only as needed. [id number] KEVIN KITCHEN, PT PHYSICAL THERAPY / HAND THERAPY [facility] [place] [address] [place] [address] 08/24/2021 10:23:09 08/24/2021 13:17:41 Pain of right shoulder joint [id number] 9631990 M25.511 Injury of tendon of long head of biceps 461503487 S46.101D Muscle weakness 94759011 M62.81 Stiffness of right shoulder 4879214216 20180 M25.858 [id number] DESTINEE CASTELLANO PA-C ORTHOPEDI [facility] [address] [place] [address] 09/11/2021 11:38:21 09/11/2021 12:20:15 Pain of right shoulder joint [id number] 0723610 M25.511 With patient's presentati on today and where she is having most of her difficulti es, I do feel AC joint has some involvemen t. Plan: We will proceed with injection to the right AC joint today. We will get patient back into physical therapy. We will back off from progressio ns normal activities until shoulder calms down. [id number] KEVIN KITCHEN, PT PHYSICAL THERAPY / HAND THERAPY [facility] [address] [place] [address] 10/05/2021 14:27:27 10/06/2021 08:11:52 Pain of right shoulder joint [id number] 3982659 M25.511 Muscle weakness 23102692 M62.81 Incoordination 736565164 R27.9 Impingemen t syndrome of right shoulder region [id number] 00076 M75.41 [id number] VANI VELASQUEZ MD [facility] [address] [place] [address] 10/09/2021 10:44:03 10/09/2021 12:09:54 Arthritis of acromioclavicular joint 437439619 M13.021 [id number] DESTINEE CASTELLANO PA-C [facility] [place] [address] [address] 10/16/2021 13:41:20 10/16/2021 15:38:35 Pain of right shoulder joint 1139670041 8887620 M25.511 I did independen tly cover and review MRI with the patient today extensivel y. No significan t cuff tear identified . Mild AC arthrosis but does not appear significan t. Evidence of previous biceps tenodesis. No acute bony abnormalit ies or pathologic process.Pl an:We will keep patient in physical therapy to continue to work on her scapular issues which could very well be contributi ng to impingemen t and AC problems. OTC anti-infla mmatories as needed. [id number] CHINA ZAMARRIPA II, PT, DPT PHYSICAL THERAPY / HAND THERAPY [facility] [address] [place] [address] 11/02/2021 13:30:24 11/03/2021 10:45:16 History of major orthopedic surgery [id number] Z98.890 Muscle weakness 93939388 M62.81 Incoordination 237602278 R27.9 Pain of ri ght shoulder joint [id number] 0773074 M25.511 [id number] CHINA ZAMARRIPA II, PT, DPT PHYSICAL THERAPY / HAND THERAPY [facility] [address] [place] [address] 11/23/2021 13:50:29 11/23/2021 16:19:45 Pain of right shoulder joint 3049085560 6575147 M25.511 History of major orthopedic surgery 003813165 Z98.890 Shoulder joint pain 2679 35663 M25.519 Muscular incoordination 95355367 R27.8 Health Concerns Section Related Observation LastModified by Organization Detai ls LastModified Time None Recorded Concern Status LastModified by Organization Details LastModified Time None Recorded Advance Directives Directive None Recorded Payers Encounter Date Sequence Insurance Name Policy Number Policy Amos Covered Member ID Amos Member ID Guarantor Name 10/05/2021 1 [place] [id number] Jannette Maceley [id number] Jannette Day 10/09/2021 1 [place] [id number] Jannette Karan [place] [id number] Jannette Day 10/16/2021 1 [place] [id number] Jannette R [place] [id number] Jannette Maceley 11/02/2021 1 [place] [id number] Jannette R [place] [id number] Jannette Day 11/23/2021 1 [place] [id number] Jannette Maceley [id number] Jannette Day Notes Date Note Type Note Provider Name and Address Organization Details Recorded Time 2 text/html Ref MD: Brody Wheeler Diagnosis/Affected Area: Status post right glenoid labral debridement biceps tenodesisChief Complaint: PainMechanism: No specific mechanism but patient began to use the right upper 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 DOS:04/19/21Type of surgery:R Biceps Tenodesis and right glenoid labral debridement Pain rating:current:5/10 least:4-5/10 worst:8-9/10Pain quality/location: At the anterior joint line of the right shoulder and over the right AC joint.sharp and burning and very TTP at the ant AC Jt-right Frequency of symptoms:episodic but pain occurs w/ mvmt. Radicular sx:noneN&T:none Aggravating factors:quick reflexive motion, moving laterallyAlleviating factors:IBP Effect on sleep pattern:not able to get comfortable to got to sleep or stay asleep. 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 Social: PMH: 04/19/21 patient had a biceps tenodesis w/ GL debrid due to bicipital outlet instability and labral pathology.-seen for PT at that timeHPT KEVIN KITCHEN, PT [address] [place], [address], [facility] 10/05/2021 18:32:41 2 text/html 10-09-21: Patient comes in today for FU {{Right* Left Bilateral }} {{Knee Ankle Hip Thigh Lower Leg Shoulder* Elbow Wr ist/Hand}}.AC JOINT AND SCAPULA PAIN Patient states they are {{better worse* same}} than last visit.at 2-3 months she was feeling goodand then reached behind for a cup of water and felt pop in ac and scapula and whole sh was burning PAIN:Pain Rating: Current {{0 1 2 3 4 5 6* 7 8 9 10 }}, Worst {{0 1 2 3 4 5 6 7 8 9* 10 }} SYMPTOMS:Locking {{yes no}}Catching {{yes* no}}ACBuckling {{yes no}}Instability {{yes no}}Pain with pivot/twist {{yes* no}}Grinding {{yes no}}Popping/crackin g {{yes* no}}Swelling {{yes no}}Stiffness {{yes* no}}Burning {{yes* no}}Numbness/tingl ing {{yes no*}} X-RAY: {{Yes* No}}, {{LC* GUSTAVO [employer] Heather ent has disc No Disc Putting in system}}TODAYS XRAYS WERE EVALUATED BY ME NORMAL ARCHITECTURE NO OTHER PATHOLGIC PROCESS MRI: {{Yes No}}, {{NEMO Copelandtismary ann Romeroe nt has disc No Disc Putting in system In system}} Non-Operative TreatmentsPT: {{Yes* No}} {{ Helped significantly Did not help Helped somewhat}} __1__x/wk for ___wksInjection: {{Yes* No}} {{ Helped significantly Did not help* Helped somewhat}} Date: 09/11/21NSAIDS: {{Yes No}} {{ Helped significantly Did not help Helped somewhat}}Medrol: {{Yes No}} {{ Helped significantly Did not help Helped somewhat}}Medication: {{Yes No}} {{ Helped significantly Did not help Helped somewhat}}DME: {{Yes No}} {{ Helped significantly Did not help Helped somewhat}}Activity Modification: {{Yes* No}} {{ Helped significantly Did not help Helped somewhat}} VANI VELASQUEZ MD [address] [place], [address], [facility] 10/09/2021 17:49:49 2 text/html 10/16/21 Patient comes in today for FU {{Right* Left Bilateral }} {{Knee Ankle Hip Thigh Lower Leg shoulder#}}.Patient states they are {{better worse same*}} than last visit. PAIN:Pain Rating: Current {{0 1 2 3 4 5 6 7* 8 9 10 }}, Worst {{0 1 2 3 4 5 6 7 8 9 10* }}Longstanding history of right shoulder issues for well over 1 year.No changes since last visit and feels as if she has worsened.. Arrived with same day MRI. Still having vast majority of her pain superiorly around the right AC joint. No relief with injection. 6 -20-22: Patient comes in today for FU {{Right* Left Bilateral }} {{Knee Ankle Hip Thigh Lower Leg Shoulder* Elbow Wr ist/Hand}}.AC JOINT AND SCAPULA PAIN Patient states they are {{better worse* same}} than last visit.at 2-3 months she was feeling goodand then reached behind for a cup of water and felt pop in ac and scapula and whole sh was burning PAIN:Pain Rating: Current {{0 1 2 3 4 5 6* 7 8 9 10 }}, Worst {{0 1 2 3 4 5 6 7 8 9* 10 }} SYMPTOMS:Locking {{yes no}}Catching {{yes* no}}ACBuckling {{yes no}}Instability {{yes no}}Pain with pivot/twist {{yes* no}}Grinding {{yes no}}Popping/crackin g {{yes* no}}Swelling {{yes no}}Stiffness {{yes* no}}Burning {{yes* no}}Numbness/tingl ing {{yes no*}} X-RAY: {{Yes* No}}, {{LC* GUSTAVO [employer] ent has disc No Disc Putting in system}}TODAYS XRAYS WERE EVALUATED BY ME NORMAL ARCHITECTURE NO OTHER PATHOLGIC PROCESS MRI: {{Yes No}}, {{LC GUSTAVO [employer]reg[employer] Patie nt has disc No Disc Putting in system In system}} Non-Operative TreatmentsPT: {{Yes* No}} {{ Helped significantly Did not help Helped somewhat}} __1__x/wk for ___wksInjection: {{Yes* No}} {{ Helped significantly Did not help* Helped somewhat}} Date: 09/11/21NSAIDS: {{Yes No}} {{ Helped significantly Did not help Helped somewhat}}Medrol: {{Yes No}} {{ Helped significantly Did not help Helped somewhat}}Medication: {{Yes No}} {{ Helped significantly Did not help Helped somewhat}}DME: {{Yes No}} {{ Helped significantly Did not help Helped somewhat}}Activity Modification: {{Yes* No}} {{ Helped significantly Did not help Helped somewhat}} VERO WHEELERC [address] [place], [address], [facility] 10/17/2021 07:44:20 2 text/html Pt reports her shoulder is about the same. Reports she has been compliant with her HEP. Reports she continues to have inc TTP over the AC jt. Denies any new complaints. CHINA ZAMARRIPA II, PT, DPT [address] [place], [address], [facility] 11/07/2021 08:07:00 2 text/html Pt reports her shoulder is sore today. States she is experiencing inc pain at the AC jt and into the Pec min. Reports she has not been compliant with HEP due to illness. Reports no new complaints. CHINA ZAMARRIPA II, PT, DPT [address] [place], [address], [facility] 11/23/2021 15:34:30 OBGyn Episode No OBEpisode recorded.
== END 2024-08-24 23:59 | disposition home or self-care (01) ==
LOC: LAB.DROPOF 08-25 08:41
PROVIDERS: PCP Nurse Practitioner; Visit Provider Nurse Practitioner
DX: E03.9 Hypothyroidism, unspecified (principal); I10 Essential (primary) hypertension; K21.9 Gastro-esophageal reflux disease without esophagitis; N30.90 Cystitis, unspecified without hematuria
CPT/HCPCS: 80053; 80061; 81001; 82043; 82306; 82570; 82607; 83036; 84439; 84443; 85025; 86803; 87086; 87389

== ENCOUNTER 2024-09-17 07:49 | Outpatient (CLI) | payer BC, SELFPAY ==
--- NOTE | 2024-09-17 08:00 | CT_ITS ---
FINAL REPORT TECHNIQUE: Thin section axial images were obtained from the lung apices to the upper abdomen by computed tomography. Reformatted images were obtained and reviewed. This study was performed with techniques to keep radiation doses al low as reasonably achievable (ALARA). Individualized dose reduction techniques using automated exposure control or adjustment of mA and/or kV according to the patient's size were employed. CLINICAL HISTORY: lung cancer screening current smoker 1/2ppd x36 years COMPARISON: None FINDINGS: CHEST CT LOW DOSE 50-year-old female, current smoker, 38-jiie-oyog history. CTDI vol (mGy): 2.90 DLP (mGy-cm): 102.64 Bilateral subglandular breast implants are noted. There is no axillary adenopathy. There is no mediastinal or hilar mass or adenopathy, other than a few calcified right hilar nodes. The heart is normal in size. There is no pericardial or pleural effusion. Lung window images demonstrate multiple calcified granulomas. There is a left lower lobe nodule, 4 mm in size, best seen on image #52 of series 4. Limited images of the upper abdomen are unremarkable. IMPRESSION: Lung-RADS category 2. Recommend 12 month follow up low dose chest CT. Reviewed, Interpreted and Dictated by Nathaniel Foote MD Transcribed by Tricia Luo Authenticated and . [facility]
--- NOTE | 2024-09-17 10:10 | MM_ITS ---
PROCEDURE INFORMATION: Exam: Bilateral Screening 3D Mammography Exam date and time: 09/17/2024 8:05 AM Age: 49 years old Clinical indication: Screening examination TECHNIQUE: Imaging protocol: Bilateral Screening tomosynthesis and 2D mammography including computer-aided detection (CAD) when performed. COMPARISON: [facility] DIGITAL MAMM-SCREEN BILATERAL 08/20/2011 8:14 AM FINDINGS: MAMMOGRAPHY: Breast composition: There are scattered areas of fibroglandular density. Mass: None. Architectural distortion: None. Calcifications: No suspicious calcifications. Asymmetric density: None. Skin thickening: None. Axillary adenopathy: None. Implants: Subpectoral saline breast implants are present. IMPRESSION: No mammographic evidence of malignancy. Annual screening is recommended unless otherwise clinically indicated. ASSESSMENT: BI-RADS Category 1: Negative.
== END 2024-09-17 23:59 | disposition home or self-care (01) ==
LOC: RAD 07:50
PROVIDERS: PCP Nurse Practitioner; Visit Provider Nurse Practitioner
DX: Z12.31 Encounter for screening mammogram for malignant neoplasm of breast (principal); Z12.2 Encounter for screening for malignant neoplasm of respiratory organs; F17.210 Nicotine dependence, cigarettes, uncomplicated; R92.323 Mammographic fibroglandular density, bilateral breasts; R91.8 Other nonspecific abnormal finding of lung field
CPT/HCPCS: 71271; 77063; 77067

== ENCOUNTER 2024-10-19 10:58 | Outpatient (CLI) | payer BC, SELFPAY | END 2024-10-19 23:59 | disposition home or self-care (01) | LOC: LAB.DROPOF 10-21 10:59 | PROVIDERS: PCP Nurse Practitioner; Visit Provider Nurse Practitioner | DX: R30.0 Dysuria (principal) | CPT/HCPCS: 87086; 87088; 87186 ==